=== PATIENT | female | born 1965 | race Caucasian/White ===

== ENCOUNTER 2016-11-28 00:32 | Emergency (ER) | payer SELFPAY ==
[~2016-11-28] VITALS: Ht 162.6 cm; Wt 49.4 kg
[2016-11-28 00:41] VITALS: BP 168/101
--- NOTE | 2016-11-28 03:02 | PHYS DOC ---
Past Medical History Past Medical History: Hypertension Past Surgical History: Appendectomy, Other Additional Past Surgical Histo: D&C Alcohol Use: Heavy Drug Use: None Adult General Chief Complaint Chief Complaint: SKIN PROBLEM HPI HPI Patient is a 50 year old female who presents with skin lesions and is bleeding. Patient reports she has had small wounds on her arms and legs that have been present for the past 1.5 years. She has been seen for this in the past , including by a pmp certified project manager (patient says pmp certified project manager told her it was due to stress). Patient reports these sores are painful, and she takes hydrocodone at home with partial relief. In addition, patient had nosebleed earlier tonight which has resolved by the time I saw patient. Lastly, patient voiced SI to the nursing staff as she is "sick of being sick". She denies a plan to hurt herself to me. She does report drinking several beers tonight. Review of Systems Review of Systems Constitutional: Denies fever or chills Eyes: Denies change in visual acuity or eye pain HENT: Denies nasal congestion or sore throat. Nosebleed (now resolved) Respiratory: Denies cough or shortness of breath Cardiovascular: Denies chest pain GI: Denies abdominal pain, nausea, vomiting, bloody stools or diarrhea : Denies dysuria or hematuria Musculoskeletal: Denies back pain or joint pain Integument: Small scattered wounds Neurologic: Denies headache, focal weakness or sensory changes Allergies Allergies Allergies Coded Allergies Type Severity Reaction Last Updated Verified Sulfa (Sulfonamide Antibiotics) Allergy Unknown rash 10/12/15 Yes Physical Exam Physical Exam Constitutional: Well developed, well nourished, no acute distress, non-toxic appearance HENT: Normocephalic, atraumatic, bilateral external ears normal Eyes: EOMI, conjunctiva normal, no discharge Neck: Normal range of motion, no stridor Cardiovascular: Heart rate normal, regular rhythm, no murmur Lungs & Thorax: Bilateral breath sounds clear to auscultation Abdomen: Bowel sounds normal, soft, non-distended, no TTP Skin: Warm, dry, no erythema. Several scattered wounds on arms and legs all < 7mm in diameter, non-raised, no surrounding erythema, no discharge Extremities: No obvious deformity, no edema Neurologic: Alert and oriented X 3, no gross deficits noted Psychologic: Tearful Current Patient Data Vital Signs Vital Signs Date Time Temp Pulse Resp B/P Pulse Ox O2 Delivery O2 Flow Rate FiO2 11/28/16 00:41 98.2 73 20 168/101 100 Room Air 98.2 EKG EKG [] Radiology/Procedures Radiology/Procedures [] Course & Med Decision Making Course & Med Decision Making Pertinent Labs and Imaging studies reviewed. (See chart for details) Patient is 50 year old female who presents with small wounds to arms and legs, nosebleed which has resolved, SI which she voiced nursing staff. Unclear cause a small wounds, however they do not look infected and given the long duration will not pursue workup in emergency department. As far as these ago, I discussed the importance of following up with dermatology for further evaluation. Nosebleed has resolved and did not recur during time in ED. PAT team called to evaluate for SI. Labs ordered, which I discussed with patient, however then she refused to give any blood or urine. Patient seen by Lorena of PAT team; she has been cleared to go home. Patient discharged with instructions for follow up and return precautions. Dragon Disclaimer Dragon Disclaimer This electronic medical record was generated, in whole or in part, using a voice recognition dictation system. Departure Departure Impression: Primary Impression: Multiple wounds of skin Additional Impression: Nosebleed Disposition: 01 HOME, SELF-CARE Condition: STABLE Referrals: NO PCP (PCP) HOLDEN MARIA MD Patient Instructions: Wound Care, [id number] Additional Instructions: Thank you for allowing us to provide care today in the Emergency Department. Schedule a follow up appointment with a pmp certified project manager using the provided contact information. Return promptly to the Emergency Department if you develop any new or concerning symptoms. Problem Qualifiers TENISHA GALEANO MD Nov 28, 2016 03:02
== END 2016-11-28 03:26 | disposition home or self-care (01) ==
LOC: ER 00:32
DX: S41.109A Unspecified open wound of unspecified upper arm, initial encounter (principal); S81.809A Unspecified open wound, unspecified lower leg, initial encounter; R04.0 Epistaxis; F10.10 Alcohol abuse, uncomplicated; I10 Essential (primary) hypertension; Y90.9 Presence of alcohol in blood, level not specified; Z88.2 Allergy status to sulfonamides; X58.XXXA Exposure to other specified factors, initial encounter; Y93.89 Activity, other specified; Y92.89 Other specified places as the place of occurrence of the external cause; Y99.8 Other external cause status
CPT/HCPCS: 99283

== ENCOUNTER 2018-12-09 22:59 | Inpatient (IN) | payer SELFPAY ==
[~2018-12-09] VITALS: Ht 162.6 cm; Wt 52.6 kg
[~2018-12-09 22:59] MED LIST: FOLI1TAB16 PO; LACT1CAP19 PO; Pantoprazole PO; THIA100T22 PO; VANC500V PO
[2018-12-09 23:26] LABS: BASO % 2 % (0-3); EOS # 0.1 x10^3/uL (0.0-0.7); EOS % 3 % (0-3); HEMATOCRIT 33.1 % (36.0-47.0); HEMOGLOBIN 11.4 g/dL (12.0-15.5); LYMPH # 1.1 x10^3/uL (1.0-4.8); LYMPH % 56 % (24-48); MEAN CORPUSCULAR HEMOGLOBIN 38 pg (25-35); MEAN CORPUSCULAR HGB CONC 34 g/dL (31-37); MEAN CORPUSCULAR VOLUME 110 fL (79-100); MONO # 0.2 x10^3/uL (0.0-1.1); MONO % 9 % (0-9); NEUT # 0.6 x10^3uL (1.8-7.7); NEUT % 30 % (31-73); PLATELET COUNT 88 x10^3/uL (140-400); RED BLOOD COUNT 3.02 x10^6/uL (3.50-5.40)
[2018-12-09 23:27] LABS: BILIRUBIN,URINE NEGATIVE (NEG); CLARITY,URINE CLEAR; COLOR,URINE YELLOW; NITRITE,URINE NEGATIVE (NEG); PH,URINE 5.5; PROTEIN,URINE NEGATIVE (NEG-TRACE); UROBILINOGEN,URINE 0.2 mg/dL (0.2 mg/dL)
--- NOTE | 2018-12-09 23:27 | PHYS DOC ---
Past Medical History Past Medical History: Hypertension, Other Additional Past Medical Histor: etoh Past Medical History Limited due to acute intoxication Past Surgical History: Appendectomy, Other Additional Past Surgical Histo: D&C Past Surgical History Limited due to acute intoxication Smokin Pack Per Day Alcohol Use: Heavy Drug Use: None Social History Limited due to acute intoxication Adult General Chief Complaint Chief Complaint: OVERDOSE HPI HPI Patient is a 52-year-old female presenting via EMS with a overdose of clonazepam 45 minutes to an hour ago at home. She reports that she has made suicide attempts before but she is unable to give a reliable history at this point because of her current condition. She reports that she drank about 6 beers tonight as well as the clonazepam. Patient reports that she called 911 on her own. Unable to determine further history due to current condition with intoxication. Review of Systems Review of Systems Unable to provide review of symptoms due to current condition/intoxication Current Medications Current Medications Current Medications Medications (Trade) Dose Ordered Sig/Miguel Start Time Stop Time Status Last Admin Dose Admin Multivitamins 10 ml/Thiamine HCl 100 mg/Folic Acid 1 mg/Sodium Chloride 1,011.2 ml @ 1,000.088 mls/hr 1X ONCE 12/10/18 00:00 12/10/18 01:00 DC 12/10/18 00:22 1,000.088 MLS/HR Sodium Chloride 1,000 ml @ 1,000 mls/hr 1X ONCE 12/09/18 23:30 12/10/18 00:29 DC 12/09/18 23:24 1,000 MLS/HR Allergies Allergies Allergies Coded Allergies Type Severity Reaction Last Updated Verified Sulfa (Sulfonamide Antibiotics) Allergy Intermediate rash 09/29/18 Yes Physical Exam Physical Exam Constitutional: Non-toxic appearance, drowsy. [] HENT: Normocephalic, atraumatic. [] Eyes: Conjunctiva normal, no discharge. [] Neck: Normal range of motion, no tenderness. [] Cardiovascular: Heart rate regular rhythm, no murmur [] Lungs & Thorax: Bilateral breath sounds clear to auscultation [] Abdomen: Bowel sounds normal, soft, no tenderness. [] Skin: Warm, dry, no erythema, no rash. [] Extremities: No tenderness, no edema. [] Neurologic: Alert and oriented X 3, no focal deficits noted. [] Psychologic: Mood depressed, judgement altered. [] Current Patient Data Vital Signs Vital Signs Date Time Temp Pulse Resp B/P (MAP) Pulse Ox O2 Delivery O2 Flow Rate FiO2 12/10/18 00:37 68 16 107/85 (92) 99 Room Air 12/09/18 22:59 97.7 97.7 Lab Values Laboratory Tests Test 12/09/18 23:13 12/09/18 23:15 White Blood Count 2.0 x10^3/uL (4.0-11.0) L Red Blood Count 3.02 x10^6/uL (3.50-5.40) L Hemoglobin 11.4 g/dL (12.0-15.5) L Hematocrit 33.1 % (36.0-47.0) L Mean Corpuscular Volume 110 fL (79-100) H Mean Corpuscular Hemoglobin 38 pg (25-35) H Mean Corpuscular Hemoglobin Concent 34 g/dL (31-37) Red Cell Distribution Width 16.0 % (11.5-14.5) H Platelet Count 88 x10^3/uL (140-400) L Neutrophils (%) (Auto) 30 % (31-73) L Lymphocytes (%) (Auto) 56 % (24-48) H Monocytes (%) (Auto) 9 % (0-9) Eosinophils (%) (Auto) 3 % (0-3) Basophils (%) (Auto) 2 % (0-3) Neutrophils # (Auto) 0.6 x10^3uL (1.8-7.7) L Lymphocytes # (Auto) 1.1 x10^3/uL (1.0-4.8) Monocytes # (Auto) 0.2 x10^3/uL (0.0-1.1) Eosinophils # (Auto) 0.1 x10^3/uL (0.0-0.7) Basophils # (Auto) 0.0 x10^3/uL (0.0-0.2) Segmented Neutrophils % 27 % (35-66) L Lymphocytes % 58 % (24-48) H Monocytes % 12 % (0-10) H Eosinophils % 3 % (0-5) Platelet Estimate Decreased (ADEQUATE) Macrocytosis Slight Prothrombin Time 13.5 SEC (11.7-14.0) Prothrombin Time INR 1.1 (0.8-1.1) PTT 48 SEC (24-38) H Sodium Level 138 mmol/L (136-145) Potassium Level 3.7 mmol/L (3.5-5.1) Chloride Level 102 mmol/L (98-107) Carbon Dioxide Level 23 mmol/L (21-32) Anion Gap 13 (6-14) Blood Urea Nitrogen 9 mg/dL (7-20) Creatinine 0.8 mg/dL (0.6-1.0) Estimated GFR (Cockcroft-Gault) 75.9 BUN/Creatinine Ratio 11 (6-20) Glucose Level 89 mg/dL (70-99) Calcium Level 8.6 mg/dL (8.5-10.1) Magnesium Level 2.2 mg/dL (1.8-2.4) Total Bilirubin 0.4 mg/dL (0.2-1.0) Aspartate Amino Transferase (AST) 81 U/L (15-37) H Alanine Aminotransferase (ALT) 34 U/L (14-59) Alkaline Phosphatase 174 U/L (46-116) H Total Protein 7.1 g/dL (6.4-8.2) Albumin 2.9 g/dL (3.4-5.0) L Albumin/Globulin Ratio 0.7 (1.0-1.7) L Lipase 138 U/L (73-393) Ethyl Alcohol Level 204 mg/dL (0-10) H Urine Color Yellow Urine Clarity Clear Urine pH 5.5 Urine Specific [place] <=1.005 Urine Protein Negative mg/dL (NEG-TRACE) Urine Glucose (UA) Negative mg/dL (NEG) Urine Ketones (Stick) Negative mg/dL (NEG) Urine Blood Negative (NEG) Urine Nitrite Negative (NEG) Urine Bilirubin Negative (NEG) Urine Urobilinogen Dipstick 0.2 mg/dL (0.2 mg/dL) Urine Leukocyte Esterase Negative (NEG) Urine RBC Rare /HPF (0-2) Urine WBC Occ /HPF (0-4) Urine Squamous Epithelial Cells Occ /LPF Urine Renal Epithelial Cells Occ /LPF Urine Amorphous Sediment Present /HPF Urine Bacteria 0 /HPF (0-FEW) Urine Opiates Screen Pos (NEG) Urine Methadone Screen Neg (NEG) Urine Barbiturates Neg (NEG) Urine Phencyclidine Screen Neg (NEG) Urine Amphetamine/Methamphetamine Neg (NEG) Urine Benzodiazepines Screen Neg (NEG) Urine Cocaine Screen Neg (NEG) Urine Cannabinoids Screen Neg (NEG) Urine Ethyl Alcohol Pos (NEG) Laboratory Tests 12/09/18 23:13 Laboratory Tests 12/09/18 23:13 EKG EKG EKG @ 2329 sinus rhythm at 80 BPM with prolonged QT at 414ms, no ST elevation Radiology/Procedures Radiology/Procedures [] Course & Med Decision Making Course & Med Decision Making Pertinent Lab studies reviewed. (See chart for details) Patient is a 52-year-old female that is presenting via EMS after reported suicide attempt with clonazepam. It is unclear how much clonazepam she took, she had a prescription for 90 pills filled November 10 that had 49 pills left. She is unable to provide an accurate history. EMS also arrived with a prescription of hydrocodone 120 pills, there was only one missing. Labs obtained and posted to chart. CBC shows white count of 2, hemoglobin of 11.4, platelet count of 88. Pancytopenia actually improved in comparison to recent labs per [facility]. Urine drug screen positive for opiates, negative for benzodiazepines. Blood alcohol level of 204. CMP shows AST of 81 and alkaline phosphatase of 174. EKG shows sinus rhythm with prolonged QT at 414ms, no ST elevation. Poison control consulted. PAT consulted. Fluids administered with thiamine, folic acid, and magnesium. PAT recommends medical admission at this time due to acute intoxication and unknown ingestion. Patient will be admitted for evaluation of suicide attempt and medical management. Patient requiring admission for further evaluation and treatment. Discussed with Dr. Mega Arias (hospitalist) who is in agreement with admission. Discussed findings and plan with patient and family, who acknowledge understanding and agreement. Dragon Disclaimer Dragon Disclaimer This electronic medical record was generated, in whole or in part, using a voice recognition dictation system. Departure Departure Impression: Primary Impression: Suicidal intent Additional Impressions: Alcohol intoxication Pancytopenia Neutropenia Disposition: 09 ADMITTED INPATIENT Admitting Physician: Other (Tony Gar) Condition: STABLE Referrals: UNKNOWN PCP NAME (PCP) Problem Qualifiers Additional Impressions: Alcohol intoxication Complication of substance-induced condition: uncomplicated Qualified Codes: F10.920 - Alcohol use, unspecified with intoxication, uncomplicated Neutropenia Neutropenia type: unspecified Qualified Codes: D70.9 - Neutropenia, unspecified ESTEPHANIA SILVA DO Dec 09, 2018 23:27
[2018-12-09] MEDS ORDERED: IV NORMAL SALINE 1000ML BAG 1,000 ML IV ONE (23:30)
[2018-12-09 23:35] LABS: CALCIUM 8.6 mg/dL (8.5-10.1); CREATININE 0.8 mg/dL (0.6-1.0); GFR 75.9; POTASSIUM 3.7 mmol/L (3.5-5.1); PROTHROMBIN TIME PATIENT 13.5 SEC (11.7-14.0)
[2018-12-09 23:35] LABS: AMPHETAMINE/METHAMPHETAMINE NEG (NEG); BARBITURATES NEG (NEG); BENZODIAZEPINES NEG (NEG); CANNABINOIDS NEG (NEG); COCAINE NEG (NEG); METHADONE NEG (NEG); OPIATES POS (NEG); PHENCYCLIDINE NEG (NEG)
[2018-12-09 23:36] LABS: AMORPHOUS SEDIMENT,UR PRESENT /HPF; BACTERIA,URINE 0 /HPF (0-FEW); SQUAMOUS EPITHELIAL CELL,UR OCC /LPF; WBC,URINE OCC /HPF (0-4)
[2018-12-09 23:37] LABS: RBC,URINE RARE /HPF (0-2)
[2018-12-09 23:40] LABS: ALBUMIN 2.9 g/dL (3.4-5.0); ALBUMIN/GLOBULIN RATIO 0.7 (1.0-1.7); MAGNESIUM 2.2 mg/dL (1.8-2.4); TOTAL BILIRUBIN 0.4 mg/dL (0.2-1.0); TOTAL PROTEIN 7.1 g/dL (6.4-8.2)
[2018-12-10] MEDS ORDERED: MULTIVIT INFUSN,ADULT 4,VIT K 10 ML, THIAMINE INJ 100 MG, FOLIC ACID INJ 1 MG in IV NOR... IV ONE ×4
[2018-12-10] MEDS ORDERED: ONDANSETRON PF 4 MG/2 ML VIAL. IV PRN (01:15)
[2018-12-10 01:35] LABS: % EOS 3 % (0-5); % LYMPHS 58 % (24-48); % MONOS 12 % (0-10); % SEGS 27 % (35-66); PLT ESTIMATE DECREASED (ADEQUATE)
[2018-12-10 02:20] VITALS: BP 120/75
[2018-12-10] MEDS ORDERED: HYDR-2765 PO (02:22)
[2018-12-10] MEDS ORDERED: CLON1TAB11 PO (02:22)
[2018-12-10] MEDS ORDERED: CLON0.5T11 PO (02:22)
[2018-12-10] MEDS ORDERED: ASCO500T PO (03:10)
[2018-12-10] MEDS ORDERED: MULT1TAB52 PO (03:10)
[2018-12-10] MEDS ORDERED: FLUO10TA PO (03:12)
[2018-12-10 07:12] VITALS: BP 88/69
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
[2018-12-10] MEDS ORDERED: HALOPERIDOL LACTATE 5 MG/ML VIAL. IVP PRN (10:00)
[2018-12-10] MEDS ORDERED: diphenhydrAMINE 50 MG/ML VIAL IVP PRN (10:00)
[2018-12-10] MEDS ORDERED: cloNIDine HCL 0.1 MG TABLET PO PRN (10:00)
[2018-12-10 11:00] VITALS: BP 111/76
[2018-12-10 15:00] VITALS: BP 110/70
--- NOTE | 2018-12-10 18:20 | NUR ---
Patient has had a one to one staff member all shift due to suicide attempt. Current staff member unable to chart in the system. Patient has had 1 to 1 all shift and is upset that she cannot have any pain medication at this time per 2 DrLydia's tis shift. Patient upset with this RN due to trying to explain the reasoning behind not receiving any Hydrocodone or clonazepam at this point. Patients López called to check on the patient this shift.Patient stated to give López information.
[2018-12-10 19:00] VITALS: BP 137/92
[2018-12-10] MEDS: LACTOBACILLUS RHAMNOSUS GG 1 CAPSULE. PO SCH (20:33)
[2018-12-10] MEDS: FLUoxetine HCL 10 MG CAPSULE PO SCH (20:33)
[2018-12-10] MEDS ORDERED: LOPERAMIDE 2 MG CAPSULE PO PRN (20:45)
[2018-12-10 23:00] VITALS: BP 127/87
[2018-12-11 03:53] VITALS: BP 136/97
[2018-12-11 04:11] LABS: BASO % 1 % (0-3); EOS # 0.1 x10^3/uL (0.0-0.7); EOS % 4 % (0-3); HEMATOCRIT 29.7 % (36.0-47.0); HEMOGLOBIN 10.2 g/dL (12.0-15.5); LYMPH # 0.9 x10^3/uL (1.0-4.8); LYMPH % 67 % (24-48); MEAN CORPUSCULAR HEMOGLOBIN 38 pg (25-35); MEAN CORPUSCULAR HGB CONC 34 g/dL (31-37); MEAN CORPUSCULAR VOLUME 111 fL (79-100); MONO # 0.1 x10^3/uL (0.0-1.1); MONO % 11 % (0-9); NEUT # 0.2 x10^3uL (1.8-7.7); NEUT % 18 % (31-73); PLATELET COUNT 64 x10^3/uL (140-400); RED BLOOD COUNT 2.67 x10^6/uL (3.50-5.40); RED CELL DISTRIBUTION WIDTH 15.9 % (11.5-14.5)
[2018-12-11 04:29] LABS: ALBUMIN 2.4 g/dL (3.4-5.0); ALBUMIN/GLOBULIN RATIO 0.7 (1.0-1.7); CREATININE 0.6 mg/dL (0.6-1.0); GFR 105.4; POTASSIUM 3.4 mmol/L (3.5-5.1); TOTAL BILIRUBIN 0.6 mg/dL (0.2-1.0); TOTAL PROTEIN 5.9 g/dL (6.4-8.2)
[2018-12-11 05:11] LABS: WHITE BLOOD COUNT 1.3 x10^3/uL (4.0-11.0)
[2018-12-11 07:05] VITALS: BP 110/57
[2018-12-11] MEDS ORDERED: POTASSIUM CHLORIDE 20 MEQ TABLET.ER. PO ONE (08:15)
[2018-12-11] MEDS ORDERED: chlordiazePOXIDE HCL 25 MG CAPSULE PO PRN (08:15)
[2018-12-11] MEDS ORDERED: ONDANSETRON PF 4 MG/2 ML VIAL. IV PRN (08:15)
[2018-12-11] MEDS: LACTOBACILLUS RHAMNOSUS GG 1 CAPSULE. PO SCH ×2 (08:59→20:37)
[2018-12-11] MEDS: FLUoxetine HCL 10 MG CAPSULE PO SCH (08:59)
[2018-12-11] MEDS: PANTOPRAZOLE 40 MG TABLET.DR. PO SCH (08:59)
[2018-12-11] MEDS: THIAMINE 100 MG TABLET. PO SCH (09:00)
[2018-12-11] MEDS ORDERED: IBUPROFEN 400 MG TABLET. PO PRN (09:00)
[2018-12-11] MEDS: FOLIC ACID 1 MG TABLET. PO SCH (09:00)
[2018-12-11] MEDS ORDERED: FLUOXETINE HCL 10 MG PO SCH (09:00)
[2018-12-11] MEDS: ASCORBIC ACID 500 MG TABLET PO SCH (09:00)
[2018-12-11] MEDS: MULTIVITAMIN with MINERAL TABLET. PO SCH (09:00)
--- NOTE | 2018-12-11 09:04 | PDOC ---
PROGRESS NOTES Chief Complaint Chief Complaint Suicide attempt-OD on clonazepam, mixed with alcohol Positive opiates UDS Pancytopenia-likely related to alcoholism Moderate PCM Macrocytic anemia Elevated lipase and LFTs from alcohol Major depression, severe History of Present Illness History of Present Illness H&P reviewed Suicide attempt OD'd on clonazepam mixed with alcohol She asks for clonazepam and hydrocodone's for me-of course I refused She sees an outpatient psych She has been to inpatient psych before PAT has yet to assess Pancytopenia with hemoglobin 10, WBC 1.3 and platelets 64 with no bleeding Known to heme onc service, was seen last year for neutropenia - attributed to alcoholism Was never told she needed a bone marrow biopsy done Heavy education counseling done with sitter as witnessed-about refusing to give her more clonazepam of hydrocodone while in-house History of leaving AMA Discussed with RN Plan: Await Pat team No Tylenol or more hydrocodone - she OD from this Ibuprofen okay Okay to transfer out of CVC Librium when necessary Discussed with VANE Petersen Vitals Vitals Vital Signs Date Time Temp Pulse Resp B/P (MAP) Pulse Ox O2 Delivery O2 Flow Rate FiO2 12/11/18 07:05 98.3 67 18 110/57 (74) 96 Room Air 98.3 Physical Exam General: Alert, Oriented X3, Cooperative, No acute distress Heart: Regular rate, Normal S1, Normal S2, No murmurs Lungs: Clear Abdomen: Normal bowel sounds, Soft, No tenderness, No hepatosplenomegaly, No masses Extremities: No clubbing, No edema, Other (multiple abrasions) Skin: No rashes, No breakdown, No significant lesion, Other (Multiple abrasions ) Labs LABS Laboratory Tests Test 12/11/18 03:30 12/11/18 03:35 White Blood Count 1.3 x10^3/uL (4.0-11.0) Red Blood Count 2.67 x10^6/uL (3.50-5.40) Hemoglobin 10.2 g/dL (12.0-15.5) Hematocrit 29.7 % (36.0-47.0) Mean Corpuscular Volume 111 fL (79-100) Mean Corpuscular Hemoglobin 38 pg (25-35) Mean Corpuscular Hemoglobin Concent 34 g/dL (31-37) Red Cell Distribution Width 15.9 % (11.5-14.5) Platelet Count 64 x10^3/uL (140-400) Neutrophils (%) (Auto) 18 % (31-73) Lymphocytes (%) (Auto) 67 % (24-48) Monocytes (%) (Auto) 11 % (0-9) Eosinophils (%) (Auto) 4 % (0-3) Basophils (%) (Auto) 1 % (0-3) Neutrophils # (Auto) 0.2 x10^3uL (1.8-7.7) Lymphocytes # (Auto) 0.9 x10^3/uL (1.0-4.8) Monocytes # (Auto) 0.1 x10^3/uL (0.0-1.1) Eosinophils # (Auto) 0.1 x10^3/uL (0.0-0.7) Basophils # (Auto) 0.0 x10^3/uL (0.0-0.2) Sodium Level 142 mmol/L (136-145) Potassium Level 3.4 mmol/L (3.5-5.1) Chloride Level 109 mmol/L (98-107) Carbon Dioxide Level 25 mmol/L (21-32) Anion Gap 8 (6-14) Blood Urea Nitrogen 8 mg/dL (7-20) Creatinine 0.6 mg/dL (0.6-1.0) Estimated GFR (Cockcroft-Gault) 105.4 BUN/Creatinine Ratio 13 (6-20) Glucose Level 90 mg/dL (70-99) Calcium Level 8.0 mg/dL (8.5-10.1) Total Bilirubin 0.6 mg/dL (0.2-1.0) Aspartate Amino Transf (AST/SGOT) 73 U/L (15-37) Alanine Aminotransferase (ALT/SGPT) 30 U/L (14-59) Alkaline Phosphatase 146 U/L (46-116) Total Protein 5.9 g/dL (6.4-8.2) Albumin 2.4 g/dL (3.4-5.0) Albumin/Globulin Ratio 0.7 (1.0-1.7) Review of Systems Review of Systems A 14 point ROS was completed with the following noted as positive: Other systems reviewed and negative. \CONSTITUTIONAL: No fever or chills EYES: No recent changes SKIN: No rash or itching CARDIOVASCULAR: No chest pain, syncope, palpitations, or edema RESPIRATORY: No SOB or cough GASTROINTESTINAL: No nausea, vomiting or abdominal pain NEUROLOGICAL: No headaches or weakness ENDOCRINE: No cold or heat intolerance GENITOURINARY: No urgency or frequency of urination MUSCULOSKELETAL: No back pain or joint pain LYMPHATICS: No enlarged lymph nodes PSYCHIATRIC: No anxiety or depression Assessment and Plan Assessmemt and Plan Problems Medical Problems: (1) Alcohol intoxication Status: Acute (2) Neutropenia Status: Acute (3) Pancytopenia Status: Acute (4) Suicidal intent Status: Acute Comment Review of Relevant I have reviewed the following items romeo (where applicable) has been applied. Labs Laboratory Tests Test 12/09/18 23:13 12/09/18 23:15 12/11/18 03:30 12/11/18 03:35 White Blood Count 2.0 x10^3/uL (4.0-11.0) 1.3 x10^3/uL (4.0-11.0) Red Blood Count 3.02 x10^6/uL (3.50-5.40) 2.67 x10^6/uL (3.50-5.40) Hemoglobin 11.4 g/dL (12.0-15.5) 10.2 g/dL (12.0-15.5) Hematocrit 33.1 % (36.0-47.0) 29.7 % (36.0-47.0) Mean Corpuscular Volume 110 fL (79-100) 111 fL (79-100) Mean Corpuscular Hemoglobin 38 pg (25-35) 38 pg (25-35) Mean Corpuscular Hemoglobin Concent 34 g/dL (31-37) 34 g/dL (31-37) Red Cell Distribution Width 16.0 % (11.5-14.5) 15.9 % (11.5-14.5) Platelet Count 88 x10^3/uL (140-400) 64 x10^3/uL (140-400) Neutrophils (%) (Auto) 30 % (31-73) 18 % (31-73) Lymphocytes (%) (Auto) 56 % (24-48) 67 % (24-48) Monocytes (%) (Auto) 9 % (0-9) 11 % (0-9) Eosinophils (%) (Auto) 3 % (0-3) 4 % (0-3) Basophils (%) (Auto) 2 % (0-3) 1 % (0-3) Neutrophils # (Auto) 0.6 x10^3uL (1.8-7.7) 0.2 x10^3uL (1.8-7.7) Lymphocytes # (Auto) 1.1 x10^3/uL (1.0-4.8) 0.9 x10^3/uL (1.0-4.8) Monocytes # (Auto) 0.2 x10^3/uL (0.0-1.1) 0.1 x10^3/uL (0.0-1.1) Eosinophils # (Auto) 0.1 x10^3/uL (0.0-0.7) 0.1 x10^3/uL (0.0-0.7) Basophils # (Auto) 0.0 x10^3/uL (0.0-0.2) 0.0 x10^3/uL (0.0-0.2) Segmented Neutrophils % 27 % (35-66) Lymphocytes % 58 % (24-48) Monocytes % 12 % (0-10) Eosinophils % 3 % (0-5) Platelet Estimate Decreased (ADEQUATE) Macrocytosis Slight Prothrombin Time 13.5 SEC (11.7-14.0) Prothromb Time International Ratio 1.1 (0.8-1.1) Activated Partial Thromboplast Time 48 SEC (24-38) Sodium Level 138 mmol/L (136-145) 142 mmol/L (136-145) Potassium Level 3.7 mmol/L (3.5-5.1) 3.4 mmol/L (3.5-5.1) Chloride Level 102 mmol/L (98-107) 109 mmol/L (98-107) Carbon Dioxide Level 23 mmol/L (21-32) 25 mmol/L (21-32) Anion Gap 13 (6-14) 8 (6-14) Blood Urea Nitrogen 9 mg/dL (7-20) 8 mg/dL (7-20) Creatinine 0.8 mg/dL (0.6-1.0) 0.6 mg/dL (0.6-1.0) Estimated GFR (Cockcroft-Gault) 75.9 105.4 BUN/Creatinine Ratio 11 (6-20) 13 (6-20) Glucose Level 89 mg/dL (70-99) 90 mg/dL (70-99) Calcium Level 8.6 mg/dL (8.5-10.1) 8.0 mg/dL (8.5-10.1) Magnesium Level 2.2 mg/dL (1.8-2.4) Total Bilirubin 0.4 mg/dL (0.2-1.0) 0.6 mg/dL (0.2-1.0) Aspartate Amino Transf (AST/SGOT) 81 U/L (15-37) 73 U/L (15-37) Alanine Aminotransferase (ALT/SGPT) 34 U/L (14-59) 30 U/L (14-59) Alkaline Phosphatase 174 U/L (46-116) 146 U/L (46-116) Total Protein 7.1 g/dL (6.4-8.2) 5.9 g/dL (6.4-8.2) Albumin 2.9 g/dL (3.4-5.0) 2.4 g/dL (3.4-5.0) Albumin/Globulin Ratio 0.7 (1.0-1.7) 0.7 (1.0-1.7) Lipase 138 U/L (73-393) Ethyl Alcohol Level 204 mg/dL (0-10) Urine Color Yellow Urine Clarity Clear Urine pH 5.5 Urine Specific [place] <=1.005 Urine Protein Negative mg/dL (NEG-TRACE) Urine Glucose (UA) Negative mg/dL (NEG) Urine Ketones (Stick) Negative mg/dL (NEG) Urine Blood Negative (NEG) Urine Nitrite Negative (NEG) Urine Bilirubin Negative (NEG) Urine Urobilinogen Dipstick 0.2 mg/dL (0.2 mg/dL) Urine Leukocyte Esterase Negative (NEG) Urine RBC Rare /HPF (0-2) Urine WBC Occ /HPF (0-4) Urine Squamous Epithelial Cells Occ /LPF Urine Renal Epithelial Cells Occ /LPF Urine Amorphous Sediment Present /HPF Urine Bacteria 0 /HPF (0-FEW) Urine Opiates Screen Pos (NEG) Urine Methadone Screen Neg (NEG) Urine Barbiturates Neg (NEG) Urine Phencyclidine Screen Neg (NEG) Urine Amphetamine/Methamphetamine Neg (NEG) Urine Benzodiazepines Screen Neg (NEG) Urine Cocaine Screen Neg (NEG) Urine Cannabinoids Screen Neg (NEG) Urine Ethyl Alcohol Pos (NEG) Laboratory Tests Test 12/11/18 03:30 12/11/18 03:35 White Blood Count 1.3 x10^3/uL (4.0-11.0) Red Blood Count 2.67 x10^6/uL (3.50-5.40) Hemoglobin 10.2 g/dL (12.0-15.5) Hematocrit 29.7 % (36.0-47.0) Mean Corpuscular Volume 111 fL (79-100) Mean Corpuscular Hemoglobin 38 pg (25-35) Mean Corpuscular Hemoglobin Concent 34 g/dL (31-37) Red Cell Distribution Width 15.9 % (11.5-14.5) Platelet Count 64 x10^3/uL (140-400) Neutrophils (%) (Auto) 18 % (31-73) Lymphocytes (%) (Auto) 67 % (24-48) Monocytes (%) (Auto) 11 % (0-9) Eosinophils (%) (Auto) 4 % (0-3) Basophils (%) (Auto) 1 % (0-3) Neutrophils # (Auto) 0.2 x10^3uL (1.8-7.7) Lymphocytes # (Auto) 0.9 x10^3/uL (1.0-4.8) Monocytes # (Auto) 0.1 x10^3/uL (0.0-1.1) Eosinophils # (Auto) 0.1 x10^3/uL (0.0-0.7) Basophils # (Auto) 0.0 x10^3/uL (0.0-0.2) Sodium Level 142 mmol/L (136-145) Potassium Level 3.4 mmol/L (3.5-5.1) Chloride Level 109 mmol/L (98-107) Carbon Dioxide Level 25 mmol/L (21-32) Anion Gap 8 (6-14) Blood Urea Nitrogen 8 mg/dL (7-20) Creatinine 0.6 mg/dL (0.6-1.0) Estimated GFR (Cockcroft-Gault) 105.4 BUN/Creatinine Ratio 13 (6-20) Glucose Level 90 mg/dL (70-99) Calcium Level 8.0 mg/dL (8.5-10.1) Total Bilirubin 0.6 mg/dL (0.2-1.0) Aspartate Amino Transf (AST/SGOT) 73 U/L (15-37) Alanine Aminotransferase (ALT/SGPT) 30 U/L (14-59) Alkaline Phosphatase 146 U/L (46-116) Total Protein 5.9 g/dL (6.4-8.2) Albumin 2.4 g/dL (3.4-5.0) Albumin/Globulin Ratio 0.7 (1.0-1.7) Medications Current Medications Sodium Chloride 1,000 ml @ 1,000 mls/hr 1X ONCE IV Last administered on at 23:24; Start 12/09/18 at 23:30; Stop 12/10/18 at 00:29; Status DC Multivitamins 10 ml/Thiamine HCl 100 mg/Folic Acid 1 mg/Sodium Chloride 1,011.2 ml @ 1,000.088 mls/hr 1X ONCE IV Last administered on 12/10/18at 00:22; Start 12/10/18 at 00:00; Stop 12/10/18 at 01:00; Status DC Ondansetron HCl (Zofran) 4 mg PRN Q8HRS PRN IV NAUSEA/VOMITING 1ST CHOICE; Start 12/10/18 at 01:15; Stop 12/11/18 at 01:14; Status DC Lorazepam (Ativan) 1 mg PRN Q4HRS PRN IV WITHDRAWAL IRRITABILITY; Start at 01:15 Multivitamins 10 ml/Thiamine HCl 100 mg/Folic Acid 1 mg/Sodium Chloride 1,011.2 ml @ 100 mls/ hr DAILY IV ; Start 12/11/18 at 09:00; Stop 12/15/18 at 19:07 Haloperidol Lactate (Haldol Inj) 5 mg PRN Q4HRS PRN IVP Hallucinatns,Confusn, Delirium; Start 12/10/18 at 10:00 Diphenhydramine HCl (Benadryl) 25 mg PRN Q15MIN PRN IVP EPS symptoms 2'Haldol admin; Start 12/10/18 at 10:00 Clonidine HCl (Catapres) 0.1 mg PRN Q1HR PRN PO SBP > 180 or DBP > 100, MRX3; Start 12/10/18 at 10:00 Folic Acid (Folic Acid) 1 mg DAILY PO ; Start 12/11/18 at 09:00 Lactobacillus Rhamnosus (Culturelle) 1 cap BID PO Last administered on at 08:59; Start 12/10/18 at 21:00 Ascorbic Acid (Vitamin C) 500 mg DAILY PO ; Start 12/11/18 at 09:00 Multivitamins (Thera M Plus) 1 tab DAILY PO ; Start 12/11/18 at 09:00 Thiamine Mononitrate (Vitamin B-1) 100 mg DAILY PO ; Start 12/11/18 at 09:00 Pantoprazole Sodium (Protonix) 40 mg DAILYAC PO Last administered on 12/11/18at 08:59; Start 12/11/18 at 07:30 Non-Formulary Medication (Fluoxetine Hcl ) 10 mg DAILY PO ; Start 12/11/18 at 09 :00; Stop 12/11/18 at 09:00; Status DC Fluoxetine HCl (PROzac) 10 mg DAILY PO Last administered on 12/11/18at 08:59; Start 12/10/18 at 20:00 Loperamide HCl (Imodium) 2 mg PRN Q15MIN PRN PO DIARRHEA Last administered on at 21:23; Start 12/10/18 at 20:45; Stop 12/11/18 at 08:08; Status DC Chlordiazepoxide (Librium) 25 mg PRN Q6HRS PRN PO ANXIETY / AGITATION; Start at 08:15 Ondansetron HCl (Zofran) 4 mg PRN Q6HRS PRN IV NAUSEA/VOMITING; Start 12/11/18 at 08:15 Potassium Chloride (Klor-Con) 40 meq 1X ONCE PO ; Start 12/11/18 at 08:15; Stop 12/11/18 at 08:16; Status DC Active Scripts Active Vitamin B-1 (Thiamine Mononitrate) 100 Mg Tablet 100 Mg PO DAILY 30 Days Folic Acid 1 Mg Tablet 1 Mg PO DAILY 30 Days Culturelle (Lactobacillus Rhamnosus Gg) 1 Each Cap.sprink 1 Cap PO BID 30 Days [Pantoprazole] 40 MG Tablet.dr 40 Mg PO DAILYAC 30 Days Vancomycin Hcl 500 Mg Vial 125 Mg PO [id number] 13 Days Reported Fluoxetine Hcl 10 Mg Tablet 10 Mg PO DAILY Vitamin C (Ascorbic Acid) 500 Mg Tab.chew 500 Mg PO DAILY Multivitamins (Multivitamin) 1 Each Tablet 1 Tab PO DAILY Clonazepam 0.5 Mg Tablet 0.5 Mg PO TID Clonazepam 1 Mg Tablet 1 Mg PO TID Hydrocodone-Apap 7.5-325 (Hydrocodone Bit/Acetaminophen) 1 Tab Tablet 1 Tab PO PRN Q6HRS PRN Vitals/I & O Vital Sign - Last 24 Hours 12/10/18 12/10/18 12/10/18 12/10/18 11:00 15:00 19:00 20:30 Temp 97.7 98.3 97.6 97.7 98.3 97.6 Pulse 75 81 89 Resp 20 16 20 B/P (MAP) 111/76 (88) 110/70 (83) 137/92 (107) Pulse Ox 97 96 99 O2 Delivery Room Air Room Air Room Air Room Air 12/10/18 12/11/18 12/11/18 23:00 03:53 07:05 Temp 98.0 97.7 98.3 98.0 97.7 98.3 Pulse 76 61 67 Resp 20 20 18 B/P (MAP) 127/87 (100) 136/97 (110) 110/57 (74) Pulse Ox 95 97 96 O2 Delivery Room Air Room Air Room Air Intake and Output 12/10/18 12/10/18 12/11/18 15:00 23:00 07:00 Intake Total 0 ml Output Total 200 ml 600 ml Balance -200 ml -600 ml ANI LITTLE MD Dec 11, 2018 09:04
--- NOTE | 2018-12-11 09:15 | NUR ---
PATIENT NOT GIVEN SOME OF PO MULTIVITAMINS DUE TO THOSE VITAMINS BEING ADDED TO THE [facility]NA[facility] BAG
--- NOTE | 2018-12-11 09:44 | PDOC2 ---
CONSULT Date of Consult Date of Consult DATE: 12/11/18 TIME: 09:34 Reason for Consult Reason for Consult: Pancytopenia Referring Physician Referring Physician: Rin Source Source: Chart review, Patient History of Present Illness Reason for Visit: 53 yo female with history of etoh abuse and ?cirrhosis presented to the hospital after drinking 6 beers as per report and taking clonazepam. She states that she typically drinks a pint of whiskey and 2 beers every day. I was consulted for pancytopenia. She was here in [place] in September with very similar labs. She states that she was diagnosed with cirrhosis at as well. (I cannot access the chart from [facility]). She states that she has not had bloodwork in between her visits from September to now. Currently she denies any further symptoms. She denies any bleeding or infection type symptoms. Past Medical History Cardiovascular: No pertinent hx Pulmonary: No pertinent hx GI: Other Heme/Onc: Anemia NOS, Other (Neutropenia) Psych: Depression Infectious disease: No pertinent hx ENT: No pertinent hx Renal/: No pertinent hx Endocrine: No pertinent hx Past Surgical History Past Surgical History: Appendectomy, Other Family History Family History: Alcohol Abuse Social History <1 pack per day ALCOHOL: heavy Drugs: None Current Problem List Problem List Problems Medical Problems: (1) Alcohol intoxication Status: Acute (2) Neutropenia Status: Acute (3) Pancytopenia Status: Acute (4) Suicidal intent Status: Acute Current Medications Current Medications Current Medications Sodium Chloride 1,000 ml @ 1,000 mls/hr 1X ONCE IV Last administered on at 23:24; Start 12/09/18 at 23:30; Stop 12/10/18 at 00:29; Status DC Multivitamins 10 ml/Thiamine HCl 100 mg/Folic Acid 1 mg/Sodium Chloride 1,011.2 ml @ 1,000.088 mls/hr 1X ONCE IV Last administered on 12/10/18at 00:22; Start 12/10/18 at 00:00; Stop 12/10/18 at 01:00; Status DC Ondansetron HCl (Zofran) 4 mg PRN Q8HRS PRN IV NAUSEA/VOMITING 1ST CHOICE; Start 12/10/18 at 01:15; Stop 12/11/18 at 01:14; Status DC Lorazepam (Ativan) 1 mg PRN Q4HRS PRN IV WITHDRAWAL IRRITABILITY; Start at 01:15 Multivitamins 10 ml/Thiamine HCl 100 mg/Folic Acid 1 mg/Sodium Chloride 1,011.2 ml @ 100 mls/ hr DAILY IV ; Start 12/11/18 at 09:00; Stop 12/15/18 at 19:07 Haloperidol Lactate (Haldol Inj) 5 mg PRN Q4HRS PRN IVP Hallucinatns,Confusn, Delirium; Start 12/10/18 at 10:00 Diphenhydramine HCl (Benadryl) 25 mg PRN Q15MIN PRN IVP EPS symptoms 2'Haldol admin; Start 12/10/18 at 10:00 Clonidine HCl (Catapres) 0.1 mg PRN Q1HR PRN PO SBP > 180 or DBP > 100, MRX3; Start 12/10/18 at 10:00 Folic Acid (Folic Acid) 1 mg DAILY PO ; Start 12/11/18 at 09:00 Lactobacillus Rhamnosus (Culturelle) 1 cap BID PO Last administered on at 08:59; Start 12/10/18 at 21:00 Ascorbic Acid (Vitamin C) 500 mg DAILY PO ; Start 12/11/18 at 09:00 Multivitamins (Thera M Plus) 1 tab DAILY PO ; Start 12/11/18 at 09:00 Thiamine Mononitrate (Vitamin B-1) 100 mg DAILY PO ; Start 12/11/18 at 09:00 Pantoprazole Sodium (Protonix) 40 mg DAILYAC PO Last administered on 12/11/18at 08:59; Start 12/11/18 at 07:30 Non-Formulary Medication (Fluoxetine Hcl ) 10 mg DAILY PO ; Start 12/11/18 at 09 :00; Stop 12/11/18 at 09:00; Status DC Fluoxetine HCl (PROzac) 10 mg DAILY PO Last administered on 12/11/18at 08:59; Start 12/10/18 at 20:00 Loperamide HCl (Imodium) 2 mg PRN Q15MIN PRN PO DIARRHEA Last administered on at 21:23; Start 12/10/18 at 20:45; Stop 12/11/18 at 08:08; Status DC Chlordiazepoxide (Librium) 25 mg PRN Q6HRS PRN PO ANXIETY / AGITATION; Start at 08:15 Ondansetron HCl (Zofran) 4 mg PRN Q6HRS PRN IV NAUSEA/VOMITING; Start 12/11/18 at 08:15 Potassium Chloride (Klor-Con) 40 meq 1X ONCE PO ; Start 12/11/18 at 08:15; Stop 12/11/18 at 08:16; Status DC Ibuprofen (Motrin) 400 mg PRN Q6HRS PRN PO INFLAMMATION; Start 12/11/18 at 09: 00 Active Scripts Active Vitamin B-1 (Thiamine Mononitrate) 100 Mg Tablet 100 Mg PO DAILY 30 Days Folic Acid 1 Mg Tablet 1 Mg PO DAILY 30 Days Culturelle (Lactobacillus Rhamnosus Gg) 1 Each Cap.sprink 1 Cap PO BID 30 Days [Pantoprazole] 40 MG Tablet.dr 40 Mg PO DAILYAC 30 Days Vancomycin Hcl 500 Mg Vial 125 Mg PO [id number] 13 Days Reported Fluoxetine Hcl 10 Mg Tablet 10 Mg PO DAILY Vitamin C (Ascorbic Acid) 500 Mg Tab.chew 500 Mg PO DAILY Multivitamins (Multivitamin) 1 Each Tablet 1 Tab PO DAILY Clonazepam 0.5 Mg Tablet 0.5 Mg PO TID Clonazepam 1 Mg Tablet 1 Mg PO TID Hydrocodone-Apap 7.5-325 (Hydrocodone Bit/Acetaminophen) 1 Tab Tablet 1 Tab PO PRN Q6HRS PRN Allergies Allergies: Coded Allergies: Sulfa (Sulfonamide Antibiotics) (Verified Allergy, Intermediate, rash, ) ROS General: No: Chills, Night Sweats, Fatigue, Malaise, Appetite, Other PSYCHOLOGICAL ROS: YES: Anxiety, Depression, Irritablity Eyes: No Blurry vision, No Decreased vision, No Double vision, No Dry eyes, No Excessive tearing, No Eye Pain, No Itchy Eyes, No Loss of vision, No Photophobia , No Scotomata, No Uses contacts, No Uses glasses, No Other HEENT: No: Heacaches, Visual Changes, Hearing change, Nasal congestion, Nasal discharge, Oral lesions, Sinus pain, Sore Throat, Epistaxis, Sneezing, Snoring, Tinnitus, Vertigo, Vocal changes, Other ALLERGY AND IMMUNOLOGY: No: Hives, Insect Bite Sensitivity, Itchy/Watery Eyes, Nasal Congestion, Post Nasal Drip, Seasonal Allergies, Other Hematological and Lymphatic: No: Bleeding Problems, Blood Clots, Blood Transfusions, Brusing, Night Sweats, Pallor, Swollen Lymph Nodes, Other ENDOCRINE: No: Breast Changes, Galactorrhea, Hair Pattern Changes, Hot Flashes , Malaise/lethargy, Mood Swings, Palpitations, Polydipsia/polyuria, Skin Changes , Temperature Intolerance, Unexpected Weight Changes, Other Breast: No New/Changing Breast Lumps, No Nipple changes, No Nipple discharge, No Other Respiratory: No: Cough, Hemoptysis, Orthopnea, Pleuritic Pain, Shortness of breath, SOB with excertion, Sputum Changes, Stridor, Tachypnea, Wheezing, Other Cardiovascular: No Chest Pain, No Palpitations, No Orthopnea, No Paroxysmal Noc. Dyspnea, No Edema, No Lt Headedness, No Other Gastrointestinal: No Nausea, No Vomiting, No Abdominal Pain, No Diarrhea, No Constipation, No Melena, No Hematochezia, No Other Genitourinary: No Dysuria, No Frequency, No Incontinence, No Hematuria, No Retention, No Discharge, No Urgency, No Pain, No Flank Pain, No Other, No , No , No , No , No , No , No Musculoskeletal: No Gait Disturbance, No Joint Pain, No Joint Stiffness, No Joint Swelling, No Muscle Pain, No Muscular Weakness, No Pain In:, No Swelling In:, No Other Neurological: No Behavorial Changes, No Bowel/Bladder ControlChng, No Confusion , No Dizziness, No Gait Disturbance, No Headaches, No Impaired Coord/balance, No Memory Loss, No Numbness/Tingling, No Seizures, No Speech Problems, No Tremors, No Visual Changes, No Weakness, No Other Skin: No Dry Skin, No Eczema, No Hair Changes, No Lumps, No Mole Changes, No Mottling, No Nail Changes, No Pruritus, No Rash, No Skin Lesion Changes, No Other, No Acne Physical Exam General: Alert, Cooperative, No acute distress HEENT: PERRLA Lungs: Clear to auscultation, Normal air movement Heart: Regular rate, Normal S1, Normal S2 Abdomen: Normal bowel sounds, Soft, No hepatosplenomegaly Vitals VITALS Vital Signs Date Time Temp Pulse Resp B/P (MAP) Pulse Ox O2 Delivery O2 Flow Rate FiO2 12/11/18 07:05 98.3 67 18 110/57 (74) 96 Room Air 98.3 Labs Labs Laboratory Tests Test 12/09/18 23:13 12/09/18 23:15 12/11/18 03:30 12/11/18 03:35 White Blood Count 2.0 x10^3/uL (4.0-11.0) 1.3 x10^3/uL (4.0-11.0) Red Blood Count 3.02 x10^6/uL (3.50-5.40) 2.67 x10^6/uL (3.50-5.40) Hemoglobin 11.4 g/dL (12.0-15.5) 10.2 g/dL (12.0-15.5) Hematocrit 33.1 % (36.0-47.0) 29.7 % (36.0-47.0) Mean Corpuscular Volume 110 fL (79-100) 111 fL (79-100) Mean Corpuscular Hemoglobin 38 pg (25-35) 38 pg (25-35) Mean Corpuscular Hemoglobin Concent 34 g/dL (31-37) 34 g/dL (31-37) Red Cell Distribution Width 16.0 % (11.5-14.5) 15.9 % (11.5-14.5) Platelet Count 88 x10^3/uL (140-400) 64 x10^3/uL (140-400) Neutrophils (%) (Auto) 30 % (31-73) 18 % (31-73) Lymphocytes (%) (Auto) 56 % (24-48) 67 % (24-48) Monocytes (%) (Auto) 9 % (0-9) 11 % (0-9) Eosinophils (%) (Auto) 3 % (0-3) 4 % (0-3) Basophils (%) (Auto) 2 % (0-3) 1 % (0-3) Neutrophils # (Auto) 0.6 x10^3uL (1.8-7.7) 0.2 x10^3uL (1.8-7.7) Lymphocytes # (Auto) 1.1 x10^3/uL (1.0-4.8) 0.9 x10^3/uL (1.0-4.8) Monocytes # (Auto) 0.2 x10^3/uL (0.0-1.1) 0.1 x10^3/uL (0.0-1.1) Eosinophils # (Auto) 0.1 x10^3/uL (0.0-0.7) 0.1 x10^3/uL (0.0-0.7) Basophils # (Auto) 0.0 x10^3/uL (0.0-0.2) 0.0 x10^3/uL (0.0-0.2) Segmented Neutrophils % 27 % (35-66) Lymphocytes % 58 % (24-48) Monocytes % 12 % (0-10) Eosinophils % 3 % (0-5) Platelet Estimate Decreased (ADEQUATE) Macrocytosis Slight Prothrombin Time 13.5 SEC (11.7-14.0) Prothromb Time International Ratio 1.1 (0.8-1.1) Activated Partial Thromboplast Time 48 SEC (24-38) Sodium Level 138 mmol/L (136-145) 142 mmol/L (136-145) Potassium Level 3.7 mmol/L (3.5-5.1) 3.4 mmol/L (3.5-5.1) Chloride Level 102 mmol/L (98-107) 109 mmol/L (98-107) Carbon Dioxide Level 23 mmol/L (21-32) 25 mmol/L (21-32) Anion Gap 13 (6-14) 8 (6-14) Blood Urea Nitrogen 9 mg/dL (7-20) 8 mg/dL (7-20) Creatinine 0.8 mg/dL (0.6-1.0) 0.6 mg/dL (0.6-1.0) Estimated GFR (Cockcroft-Gault) 75.9 105.4 BUN/Creatinine Ratio 11 (6-20) 13 (6-20) Glucose Level 89 mg/dL (70-99) 90 mg/dL (70-99) Calcium Level 8.6 mg/dL (8.5-10.1) 8.0 mg/dL (8.5-10.1) Magnesium Level 2.2 mg/dL (1.8-2.4) Total Bilirubin 0.4 mg/dL (0.2-1.0) 0.6 mg/dL (0.2-1.0) Aspartate Amino Transf (AST/SGOT) 81 U/L (15-37) 73 U/L (15-37) Alanine Aminotransferase (ALT/SGPT) 34 U/L (14-59) 30 U/L (14-59) Alkaline Phosphatase 174 U/L (46-116) 146 U/L (46-116) Total Protein 7.1 g/dL (6.4-8.2) 5.9 g/dL (6.4-8.2) Albumin 2.9 g/dL (3.4-5.0) 2.4 g/dL (3.4-5.0) Albumin/Globulin Ratio 0.7 (1.0-1.7) 0.7 (1.0-1.7) Lipase 138 U/L (73-393) Ethyl Alcohol Level 204 mg/dL (0-10) Urine Color Yellow Urine Clarity Clear Urine pH 5.5 Urine Specific [place] <=1.005 Urine Protein Negative mg/dL (NEG-TRACE) Urine Glucose (UA) Negative mg/dL (NEG) Urine Ketones (Stick) Negative mg/dL (NEG) Urine Blood Negative (NEG) Urine Nitrite Negative (NEG) Urine Bilirubin Negative (NEG) Urine Urobilinogen Dipstick 0.2 mg/dL (0.2 mg/dL) Urine Leukocyte Esterase Negative (NEG) Urine RBC Rare /HPF (0-2) Urine WBC Occ /HPF (0-4) Urine Squamous Epithelial Cells Occ /LPF Urine Renal Epithelial Cells Occ /LPF Urine Amorphous Sediment Present /HPF Urine Bacteria 0 /HPF (0-FEW) Urine Opiates Screen Pos (NEG) Urine Methadone Screen Neg (NEG) Urine Barbiturates Neg (NEG) Urine Phencyclidine Screen Neg (NEG) Urine Amphetamine/Methamphetamine Neg (NEG) Urine Benzodiazepines Screen Neg (NEG) Urine Cocaine Screen Neg (NEG) Urine Cannabinoids Screen Neg (NEG) Urine Ethyl Alcohol Pos (NEG) Laboratory Tests Test 12/11/18 03:30 12/11/18 03:35 White Blood Count 1.3 x10^3/uL (4.0-11.0) Red Blood Count 2.67 x10^6/uL (3.50-5.40) Hemoglobin 10.2 g/dL (12.0-15.5) Hematocrit 29.7 % (36.0-47.0) Mean Corpuscular Volume 111 fL (79-100) Mean Corpuscular Hemoglobin 38 pg (25-35) Mean Corpuscular Hemoglobin Concent 34 g/dL (31-37) Red Cell Distribution Width 15.9 % (11.5-14.5) Platelet Count 64 x10^3/uL (140-400) Neutrophils (%) (Auto) 18 % (31-73) Lymphocytes (%) (Auto) 67 % (24-48) Monocytes (%) (Auto) 11 % (0-9) Eosinophils (%) (Auto) 4 % (0-3) Basophils (%) (Auto) 1 % (0-3) Neutrophils # (Auto) 0.2 x10^3uL (1.8-7.7) Lymphocytes # (Auto) 0.9 x10^3/uL (1.0-4.8) Monocytes # (Auto) 0.1 x10^3/uL (0.0-1.1) Eosinophils # (Auto) 0.1 x10^3/uL (0.0-0.7) Basophils # (Auto) 0.0 x10^3/uL (0.0-0.2) Sodium Level 142 mmol/L (136-145) Potassium Level 3.4 mmol/L (3.5-5.1) Chloride Level 109 mmol/L (98-107) Carbon Dioxide Level 25 mmol/L (21-32) Anion Gap 8 (6-14) Blood Urea Nitrogen 8 mg/dL (7-20) Creatinine 0.6 mg/dL (0.6-1.0) Estimated GFR (Cockcroft-Gault) 105.4 BUN/Creatinine Ratio 13 (6-20) Glucose Level 90 mg/dL (70-99) Calcium Level 8.0 mg/dL (8.5-10.1) Total Bilirubin 0.6 mg/dL (0.2-1.0) Aspartate Amino Transf (AST/SGOT) 73 U/L (15-37) Alanine Aminotransferase (ALT/SGPT) 30 U/L (14-59) Alkaline Phosphatase 146 U/L (46-116) Total Protein 5.9 g/dL (6.4-8.2) Albumin 2.4 g/dL (3.4-5.0) Albumin/Globulin Ratio 0.7 (1.0-1.7) Assessment/Plan Assessment/Plan 53 yo female with history of depression and etoh abuse presented to the hospital after drinking and taking clonazepam. Consulted for pancytopenia. 1. Pancytopenia. -Most likely this is from acute etoh intoxication. She also has an enlarged liver and has a questionable diagnosis of cirrhosis. She could be chronically pancytopenic from liver disease as well. Unfortunately, we do not have labs in the [facility] to compare to when she is not acutely here for etoh intoxication. Her b12 from August was normal and I do not think that we need to repeat it today. She is receiving folic acid, so little value in testing her folic acid level. 2. Suicidal Attempt. She is on 1:1. PAT team was consulted 3. Liver disease. She should obstain from further etoh and follow-up with hepatology as an outpatient. JACK WEBSTER MD Dec 11, 2018 09:44
[2018-12-11 10:07] VITALS: BP 123/78
[2018-12-11] MEDS: MULTIVIT INFUSN,ADULT 4,VIT K 10 ML, THIAMINE INJ 100 MG, FOLIC ACID INJ 1 MG in IV NOR... IV SCH (10:14)
--- NOTE | 2018-12-11 10:34 | PDOC ---
Infectious Disease Note Vital Sign Vital Signs Vital Signs Date Time Temp Pulse Resp B/P (MAP) Pulse Ox O2 Delivery O2 Flow Rate FiO2 12/11/18 08:00 Room Air 12/11/18 07:05 98.3 67 18 110/57 (74) 96 98.3 Labs Lab Laboratory Tests Test 12/11/18 03:30 12/11/18 03:35 White Blood Count 1.3 x10^3/uL (4.0-11.0) Red Blood Count 2.67 x10^6/uL (3.50-5.40) Hemoglobin 10.2 g/dL (12.0-15.5) Hematocrit 29.7 % (36.0-47.0) Mean Corpuscular Volume 111 fL (79-100) Mean Corpuscular Hemoglobin 38 pg (25-35) Mean Corpuscular Hemoglobin Concent 34 g/dL (31-37) Red Cell Distribution Width 15.9 % (11.5-14.5) Platelet Count 64 x10^3/uL (140-400) Neutrophils (%) (Auto) 18 % (31-73) Lymphocytes (%) (Auto) 67 % (24-48) Monocytes (%) (Auto) 11 % (0-9) Eosinophils (%) (Auto) 4 % (0-3) Basophils (%) (Auto) 1 % (0-3) Neutrophils # (Auto) 0.2 x10^3uL (1.8-7.7) Lymphocytes # (Auto) 0.9 x10^3/uL (1.0-4.8) Monocytes # (Auto) 0.1 x10^3/uL (0.0-1.1) Eosinophils # (Auto) 0.1 x10^3/uL (0.0-0.7) Basophils # (Auto) 0.0 x10^3/uL (0.0-0.2) Sodium Level 142 mmol/L (136-145) Potassium Level 3.4 mmol/L (3.5-5.1) Chloride Level 109 mmol/L (98-107) Carbon Dioxide Level 25 mmol/L (21-32) Anion Gap 8 (6-14) Blood Urea Nitrogen 8 mg/dL (7-20) Creatinine 0.6 mg/dL (0.6-1.0) Estimated GFR (Cockcroft-Gault) 105.4 BUN/Creatinine Ratio 13 (6-20) Glucose Level 90 mg/dL (70-99) Calcium Level 8.0 mg/dL (8.5-10.1) Total Bilirubin 0.6 mg/dL (0.2-1.0) Aspartate Amino Transf (AST/SGOT) 73 U/L (15-37) Alanine Aminotransferase (ALT/SGPT) 30 U/L (14-59) Alkaline Phosphatase 146 U/L (46-116) Total Protein 5.9 g/dL (6.4-8.2) Albumin 2.4 g/dL (3.4-5.0) Albumin/Globulin Ratio 0.7 (1.0-1.7) Objective Assessment Diarrhea. h/o C. difficile, 10/01/2018. Recently treated for sinus infection Leukopenia/pancytopenia likely to alcoholism Drug overdose Alcoholism Liver disease Plan Plan of Care start po vanc empirically check stool for c. diff Monitor labs Hold Imodium Hydration D/w nursing Thank you [id number] Patient seen and examined. Chart reviewed in detail. Case discussed with [employer] APPRENTICE. Agree with above plan. MICHAEL LAGUERRE [employer] Dec 11, 2018 10:34 LAURA VALADEZ MD Dec 11, 2018 18:52
[2018-12-11] MEDS: VANCOMYCIN 125 MG/2.5 ML ORAL SOLUTION. PO SCH ×3 (12:42→20:37)
--- NOTE | 2018-12-11 14:04 | NUR ---
PAT TEAM NOTIFIED DUE TO PT BEING IN THE HOSPITAL SINCE WEDNESDAY WITH OUT BEING SEEN. DEVAUGHN NOTIFIED AND CALLED RIGHT BACK STATING THEY NEVRE GOT CONSULTED BY THE ER STATED IN THE ER NOTE.
[2018-12-11 14:13] VITALS: BP 123/72
--- NOTE | 2018-12-11 16:57 | NUR ---
PER DR LITTLE PT IS ALLOWED VISITORS WITH A 1 TO 1 PRESENT. PT WILL BE ASSESSED IN THE MORNING BY OTIS FROM THE PAT TEAM AND WILL BE CLEARED TO GO HOME TOMMOROW.
[2018-12-11] MEDS ORDERED: LORazepam 0.5 MG TABLET PO PRN (17:00)
[2018-12-11 19:00] VITALS: BP 127/78
[2018-12-11 23:00] VITALS: BP 173/104
--- NOTE | 2018-12-12 02:54 | CONS ---
DATE OF CONSULTATION: 12/11/2018 REFERRING PHYSICIAN: Dr. Little REASON FOR CONSULTATION: Diarrhea with a history of Clostridium difficile. HISTORY OF PRESENT ILLNESS: This patient is a 53-year-old female with a history of heavy alcohol use who was brought to the ER via EMS after apparently overdosing on clonazepam with attempt to commit suicide. Urine drug screen was positive for opiates and blood alcohol level was 204. EKG showed sinus rhythm with prolonged QT. She received IV fluids with thiamine, folic acid and magnesium. On admission, she was pancytopenic likely related to alcohol intoxication. She was seen by Dr. Barakat of Hematology. The patient was admitted a couple of months ago for alcoholic hepatitis and Clostridium difficile. The patient says she finished taking oral vancomycin, but continued to have 3-4 bouts of diarrhea a day, which she controls with daily Imodium. She complains of nausea, vomiting, cramps and diminished appetite. She says she has lost about 7 pounds within 2 months. She says she was recently on antibiotics for a sinus infection. PAST MEDICAL HISTORY: Liver disease, alcoholism, Clostridium difficile on 10/01/2018, hypertension, DVT, depression, anxiety. PAST SURGICAL HISTORY: Right arm fracture, left ankle fracture, appendectomy. FAMILY HISTORY: Positive for lung cancer, suicide, alcohol abuse. SOCIAL HISTORY: The patient lives at home. She is . Long history of heavy alcohol abuse. She drinks about 1 pint of whiskey and a couple of beers daily. ALLERGIES: SULFA. MEDICATIONS: Vitamin C, Librium, Catapres, Benadryl, fluoxetine, folic acid, Haldol, ibuprofen, probiotics, Ativan, multivitamin, Zofran, Protonix, potassium chloride, thiamine. REVIEW OF SYSTEMS: Per HPI, otherwise all other review of systems are negative. PHYSICAL EXAMINATION: VITAL SIGNS: Temperature 98.3, blood pressure 110/57, heart rate 67, respiratory rate 18, pulse oximetry is 96% on room air. BMI 20. GENERAL: The patient is lying down with the covers over her head. HEENT: Pupils are equally round. Normal conjunctivae. Oral cavity: Pharynx pink and dry. NECK: Supple. LUNGS: Clear to auscultation. HEART: S1, S2. ABDOMEN: Obese, soft and nontender with bowel sounds present. EXTREMITIES: No gross edema or cyanosis. SKIN: Warm without rash. NEUROLOGIC: Arouses easily to name, oriented x 3, irritable, but cooperative. LABORATORY DATA: Today's WBC 1.3 from 2.0; hemoglobin 10.2; platelets 64,000. Creatinine 0.6, BUN 8, sodium 142, potassium 3.4, total bilirubin 0.6, AST 73, ALT 30, albumin 2.4, lipase 138. Urine toxicology positive for opiates and alcohol. Urinalysis unremarkable for infection. C. diff PCR pending. ASSESSMENT: 1. Diarrhea. History of Clostridium difficile in September 2018. 2. Recently treated for sinus infection. 3. Leukopenia/pancytopenia likely related to alcoholism. 4. Drug overdose. 5. Alcoholism. 6. Liver disease. PLAN: A C. difficile PCR has been ordered. We will start oral vancomycin empirically given recent history of Clostridium difficile and antibiotic use. Continue to monitor laboratory values. Hold Imodium. Maintain hydration. Discussed with nursing. Thank you, Dr. Little, for asking us to participate in this patient's care. Should you have further questions or concerns, please call. LAURA VALADEZ MD DR: GABBIE/ora JOB#: [id number] / [id number]
[2018-12-12 03:00] VITALS: BP 162/91
[2018-12-12 07:30] VITALS: BP 142/98
--- NOTE | 2018-12-12 07:44 | EKG ---
[facility] [address] [place] [address] Test Date: 2018-12-09 Test Time: 23:29:40 Pat Name: MOY OMALLEY Department: Room: 664 1 Gender: F Sexer: : 1965 Requested By: ANI LITTLE Order Number: [id number] Reading MD: Mert Concepcion Measurements Intervals [place] Rate: 80 P: 32 OR: 118 QRS: 48 QRSD: 84 T: 14 QT: 414 QTc: 481 Interpretive Statements SINUS RHYTHM PROLONGED QT Electronically Signed On 12-19-2018 12:37:40 CDT by Mert Concepcion
--- NOTE | 2018-12-12 09:01 | NUR ---
SW consulted for SI and attempt. Radha from PAT team will come in to see pt this morning. Will continue to follow.
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
[2018-12-12] MEDS ORDERED: POTASSIUM CHLORIDE 20 MEQ TABLET.ER. PO ONE (09:15)
[2018-12-12] MEDS: THIAMINE 100 MG TABLET. PO SCH (09:34)
[2018-12-12 09:35] LABS: BASO % 2 % (0-3); EOS # 0.1 x10^3/uL (0.0-0.7); EOS % 4 % (0-3); HEMATOCRIT 31.5 % (36.0-47.0); HEMOGLOBIN 11.1 g/dL (12.0-15.5); LYMPH # 0.7 x10^3/uL (1.0-4.8); LYMPH % 48 % (24-48); MEAN CORPUSCULAR HEMOGLOBIN 39 pg (25-35); MEAN CORPUSCULAR HGB CONC 35 g/dL (31-37); MEAN CORPUSCULAR VOLUME 112 fL (79-100); MONO # 0.2 x10^3/uL (0.0-1.1); MONO % 16 % (0-9); NEUT # 0.5 x10^3uL (1.8-7.7); NEUT % 31 % (31-73); PLATELET COUNT 63 x10^3/uL (140-400); RED BLOOD COUNT 2.83 x10^6/uL (3.50-5.40); RED CELL DISTRIBUTION WIDTH 15.9 % (11.5-14.5)
[2018-12-12] MEDS: FLUoxetine HCL 10 MG CAPSULE PO SCH (09:35)
[2018-12-12] MEDS: FOLIC ACID 1 MG TABLET. PO SCH (09:35)
[2018-12-12] MEDS: VANCOMYCIN 125 MG/2.5 ML ORAL SOLUTION. PO SCH ×2 (09:35→12:13)
[2018-12-12] MEDS: ASCORBIC ACID 500 MG TABLET PO SCH (09:35)
[2018-12-12] MEDS: MULTIVITAMIN with MINERAL TABLET. PO SCH (09:35)
[2018-12-12] MEDS: LACTOBACILLUS RHAMNOSUS GG 1 CAPSULE. PO SCH (09:35)
[2018-12-12] MEDS: PANTOPRAZOLE 40 MG TABLET.DR. PO SCH (09:35)
[2018-12-12] MEDS: MULTIVIT INFUSN,ADULT 4,VIT K 10 ML, THIAMINE INJ 100 MG, FOLIC ACID INJ 1 MG in IV NOR... IV SCH (09:36)
[2018-12-12 09:37] LABS: WHITE BLOOD COUNT 1.5 x10^3/uL (4.0-11.0)
[2018-12-12 09:44] LABS: ALBUMIN 2.7 g/dL (3.4-5.0); ALBUMIN/GLOBULIN RATIO 0.7 (1.0-1.7); CALCIUM 8.7 mg/dL (8.5-10.1); CREATININE 0.8 mg/dL (0.6-1.0); GFR 75.6; POTASSIUM 3.9 mmol/L (3.5-5.1); TOTAL BILIRUBIN 0.7 mg/dL (0.2-1.0); TOTAL PROTEIN 6.7 g/dL (6.4-8.2)
--- NOTE | 2018-12-12 11:11 | PDOC ---
Infectious Disease Note Subjective: Subjective pt says feels ok did not have any diarrhea this am as took some immodium yesterday night no f/c/n/v/d LUE swelling has improved since last admission Vital Signs: Vital Signs Vital Signs Date Time Temp Pulse Resp B/P (MAP) Pulse Ox O2 Delivery O2 Flow Rate FiO2 12/12/18 08:00 Room Air 12/12/18 07:30 97.9 53 18 142/98 (113) 95 97.9 Physical Exam: PHYSICAL EXAM GENERAL: The patient is lying down with the covers over her head. HEENT: Pupils are equally round. Normal conjunctivae. Oral cavity: Pharynx pink and dry. NECK: Supple. LUNGS: Clear to auscultation. HEART: S1, S2. ABDOMEN: Obese, soft and nontender with bowel sounds present. EXTREMITIES: No gross edema or cyanosis. SKIN: Warm without rash. NEUROLOGIC: Arouses easily to name, oriented x 3, irritable, but cooperative Medications: Inpatient Meds: Current Medications Medications (Trade) Dose Ordered Sig/Miguel Start Time Stop Time Status Last Admin Dose Admin Ascorbic Acid (Vitamin C) 500 mg DAILY 12/11/18 09:00 12/12/18 09:35 500 MG Chlordiazepoxide (Librium) 25 mg PRN Q6HRS PRN 12/11/18 08:15 12/11/18 10:13 25 MG Clonidine HCl (Catapres) 0.1 mg PRN Q1HR PRN 12/10/18 10:00 Diphenhydramine HCl (Benadryl) 25 mg PRN Q15MIN PRN 12/10/18 10:00 12/11/18 22:20 25 MG Fluoxetine HCl (PROzac) 10 mg DAILY 12/10/18 20:00 12/12/18 09:35 10 MG Folic Acid (Folic Acid) 1 mg DAILY 12/11/18 09:00 12/12/18 09:35 1 MG Haloperidol Lactate (Haldol Inj) 5 mg PRN Q4HRS PRN 12/10/18 10:00 Ibuprofen (Motrin) 400 mg PRN Q6HRS PRN 12/11/18 09:00 Lactobacillus Rhamnosus (Culturelle) 1 cap BID 12/10/18 21:00 12/12/18 09:35 1 CAP Loperamide HCl (Imodium) 2 mg PRN Q15MIN PRN 12/10/18 20:45 12/11/18 08:08 DC 12/10/18 21:23 2 MG Lorazepam (Ativan) 0.25 mg PRN QHS PRN 12/11/18 17:00 12/11/18 20:39 0.25 MG Multivitamins (Thera M Plus) 1 tab DAILY 12/11/18 09:00 12/12/18 09:35 1 TAB Multivitamins 10 ml/Thiamine HCl 100 mg/Folic Acid 1 mg/Sodium Chloride 1,011.2 ml @ 100 mls/ hr DAILY 12/11/18 09:00 12/15/18 19:07 12/12/18 09:36 100 MLS/HR Non-Formulary Medication (Fluoxetine Hcl ) 10 mg DAILY 12/11/18 09:00 12/11/18 09:00 DC Ondansetron HCl (Zofran) 4 mg PRN Q6HRS PRN 12/11/18 08:15 Pantoprazole Sodium (Protonix) 40 mg DAILYAC 12/11/18 07:30 12/12/18 09:35 40 MG Potassium Chloride (Klor-Con) 20 meq [id number] 12/13/18 08:00 Sodium Chloride 1,000 ml @ 1,000 mls/hr 1X ONCE 12/09/18 23:30 12/10/18 00:29 DC 12/09/18 23:24 1,000 MLS/HR Thiamine Mononitrate (Vitamin B-1) 100 mg DAILY 12/11/18 09:00 12/12/18 09:34 100 MG Vancomycin HCl (Vancomycin Oral Solution) 125 mg [id number] 12/11/18 13:00 12/12/18 09:35 125 MG Labs: Lab Laboratory Tests Test 12/12/18 09:14 White Blood Count 1.5 x10^3/uL (4.0-11.0) Red Blood Count 2.83 x10^6/uL (3.50-5.40) Hemoglobin 11.1 g/dL (12.0-15.5) Hematocrit 31.5 % (36.0-47.0) Mean Corpuscular Volume 112 fL (79-100) Mean Corpuscular Hemoglobin 39 pg (25-35) Mean Corpuscular Hemoglobin Concent 35 g/dL (31-37) Red Cell Distribution Width 15.9 % (11.5-14.5) Platelet Count 63 x10^3/uL (140-400) Neutrophils (%) (Auto) 31 % (31-73) Lymphocytes (%) (Auto) 48 % (24-48) Monocytes (%) (Auto) 16 % (0-9) Eosinophils (%) (Auto) 4 % (0-3) Basophils (%) (Auto) 2 % (0-3) Neutrophils # (Auto) 0.5 x10^3uL (1.8-7.7) Lymphocytes # (Auto) 0.7 x10^3/uL (1.0-4.8) Monocytes # (Auto) 0.2 x10^3/uL (0.0-1.1) Eosinophils # (Auto) 0.1 x10^3/uL (0.0-0.7) Basophils # (Auto) 0.0 x10^3/uL (0.0-0.2) Sodium Level 142 mmol/L (136-145) Potassium Level 3.9 mmol/L (3.5-5.1) Chloride Level 107 mmol/L (98-107) Carbon Dioxide Level 26 mmol/L (21-32) Anion Gap 9 (6-14) Blood Urea Nitrogen 6 mg/dL (7-20) Creatinine 0.8 mg/dL (0.6-1.0) Estimated GFR (Cockcroft-Gault) 75.6 BUN/Creatinine Ratio 8 (6-20) Glucose Level 89 mg/dL (70-99) Calcium Level 8.7 mg/dL (8.5-10.1) Total Bilirubin 0.7 mg/dL (0.2-1.0) Aspartate Amino Transf (AST/SGOT) 56 U/L (15-37) Alanine Aminotransferase (ALT/SGPT) 30 U/L (14-59) Alkaline Phosphatase 153 U/L (46-116) Total Protein 6.7 g/dL (6.4-8.2) Albumin 2.7 g/dL (3.4-5.0) Albumin/Globulin Ratio 0.7 (1.0-1.7) Objective: Assessment: Diarrhea. h/o C. difficile, 10/01/2018. Repeat C diff pcr pending Recently treated for sinus infection Leukopenia/pancytopenia likely to alcoholism Drug overdose Alcoholism Liver disease/ Pancreatitis Thrombocytopenia, resolved. H/O Occlusive Superficial vein thrombosis identified in the Lt cephalic vein Plan: Plan of Care Cont po vanc f/u C diff Monitor labs Hold Imodium,do not give any more doses for now pending c diff pcr Hydration D/W nursing LUCIUS GUILLEN MD Dec 12, 2018 11:11
[2018-12-12 12:08] VITALS: BP 138/97
--- NOTE | 2018-12-12 12:18 | PDOC ---
PROGRESS NOTES Subjective Subjective HPI - f/u of Pancytopenia. ROS - no bleed Objective Objective Vital Signs Date Time Temp Pulse Resp B/P (MAP) Pulse Ox O2 Delivery O2 Flow Rate FiO2 12/12/18 12:08 98.4 72 18 138/97 (111) 97 Room Air 98.4 Intake and Output 12/12/18 06:59 Intake Total 390 ml Balance 390 ml Intake Oral 390 ml # Voids 9 Assessment Assessment Problems Medical Problems: (1) Alcohol intoxication Status: Acute (2) Neutropenia Status: Acute (3) Pancytopenia Status: Acute (4) Suicidal intent Status: Acute 53 yo female with history of depression and etoh abuse presented to the hospital after drinking and taking clonazepam. Consulted for pancytopenia. 1. Pancytopenia. -Most likely this is from acute etoh intoxication. She also has an enlarged liver and has a questionable diagnosis of cirrhosis. She could be chronically pancytopenic from liver disease as well. -continue supportive care, Monitor cbc PRN. WBC 1.5, cont neutropenic precautions. 2. Liver disease. She should obstain from further etoh and follow-up with hepatology as an outpatient. Comment Review of Relevant I have reviewed the following items romeo (where applicable) has been applied. Labs Laboratory Tests Test 12/11/18 03:30 12/11/18 03:35 12/12/18 09:14 White Blood Count 1.3 x10^3/uL (4.0-11.0) 1.5 x10^3/uL (4.0-11.0) Red Blood Count 2.67 x10^6/uL (3.50-5.40) 2.83 x10^6/uL (3.50-5.40) Hemoglobin 10.2 g/dL (12.0-15.5) 11.1 g/dL (12.0-15.5) Hematocrit 29.7 % (36.0-47.0) 31.5 % (36.0-47.0) Mean Corpuscular Volume 111 fL (79-100) 112 fL (79-100) Mean Corpuscular Hemoglobin 38 pg (25-35) 39 pg (25-35) Mean Corpuscular Hemoglobin Concent 34 g/dL (31-37) 35 g/dL (31-37) Red Cell Distribution Width 15.9 % (11.5-14.5) 15.9 % (11.5-14.5) Platelet Count 64 x10^3/uL (140-400) 63 x10^3/uL (140-400) Neutrophils (%) (Auto) 18 % (31-73) 31 % (31-73) Lymphocytes (%) (Auto) 67 % (24-48) 48 % (24-48) Monocytes (%) (Auto) 11 % (0-9) 16 % (0-9) Eosinophils (%) (Auto) 4 % (0-3) 4 % (0-3) Basophils (%) (Auto) 1 % (0-3) 2 % (0-3) Neutrophils # (Auto) 0.2 x10^3uL (1.8-7.7) 0.5 x10^3uL (1.8-7.7) Lymphocytes # (Auto) 0.9 x10^3/uL (1.0-4.8) 0.7 x10^3/uL (1.0-4.8) Monocytes # (Auto) 0.1 x10^3/uL (0.0-1.1) 0.2 x10^3/uL (0.0-1.1) Eosinophils # (Auto) 0.1 x10^3/uL (0.0-0.7) 0.1 x10^3/uL (0.0-0.7) Basophils # (Auto) 0.0 x10^3/uL (0.0-0.2) 0.0 x10^3/uL (0.0-0.2) Sodium Level 142 mmol/L (136-145) 142 mmol/L (136-145) Potassium Level 3.4 mmol/L (3.5-5.1) 3.9 mmol/L (3.5-5.1) Chloride Level 109 mmol/L (98-107) 107 mmol/L (98-107) Carbon Dioxide Level 25 mmol/L (21-32) 26 mmol/L (21-32) Anion Gap 8 (6-14) 9 (6-14) Blood Urea Nitrogen 8 mg/dL (7-20) 6 mg/dL (7-20) Creatinine 0.6 mg/dL (0.6-1.0) 0.8 mg/dL (0.6-1.0) Estimated GFR (Cockcroft-Gault) 105.4 75.6 BUN/Creatinine Ratio 13 (6-20) 8 (6-20) Glucose Level 90 mg/dL (70-99) 89 mg/dL (70-99) Calcium Level 8.0 mg/dL (8.5-10.1) 8.7 mg/dL (8.5-10.1) Total Bilirubin 0.6 mg/dL (0.2-1.0) 0.7 mg/dL (0.2-1.0) Aspartate Amino Transf (AST/SGOT) 73 U/L (15-37) 56 U/L (15-37) Alanine Aminotransferase (ALT/SGPT) 30 U/L (14-59) 30 U/L (14-59) Alkaline Phosphatase 146 U/L (46-116) 153 U/L (46-116) Total Protein 5.9 g/dL (6.4-8.2) 6.7 g/dL (6.4-8.2) Albumin 2.4 g/dL (3.4-5.0) 2.7 g/dL (3.4-5.0) Albumin/Globulin Ratio 0.7 (1.0-1.7) 0.7 (1.0-1.7) Laboratory Tests Test 12/12/18 09:14 White Blood Count 1.5 x10^3/uL (4.0-11.0) Red Blood Count 2.83 x10^6/uL (3.50-5.40) Hemoglobin 11.1 g/dL (12.0-15.5) Hematocrit 31.5 % (36.0-47.0) Mean Corpuscular Volume 112 fL (79-100) Mean Corpuscular Hemoglobin 39 pg (25-35) Mean Corpuscular Hemoglobin Concent 35 g/dL (31-37) Red Cell Distribution Width 15.9 % (11.5-14.5) Platelet Count 63 x10^3/uL (140-400) Neutrophils (%) (Auto) 31 % (31-73) Lymphocytes (%) (Auto) 48 % (24-48) Monocytes (%) (Auto) 16 % (0-9) Eosinophils (%) (Auto) 4 % (0-3) Basophils (%) (Auto) 2 % (0-3) Neutrophils # (Auto) 0.5 x10^3uL (1.8-7.7) Lymphocytes # (Auto) 0.7 x10^3/uL (1.0-4.8) Monocytes # (Auto) 0.2 x10^3/uL (0.0-1.1) Eosinophils # (Auto) 0.1 x10^3/uL (0.0-0.7) Basophils # (Auto) 0.0 x10^3/uL (0.0-0.2) Sodium Level 142 mmol/L (136-145) Potassium Level 3.9 mmol/L (3.5-5.1) Chloride Level 107 mmol/L (98-107) Carbon Dioxide Level 26 mmol/L (21-32) Anion Gap 9 (6-14) Blood Urea Nitrogen 6 mg/dL (7-20) Creatinine 0.8 mg/dL (0.6-1.0) Estimated GFR (Cockcroft-Gault) 75.6 BUN/Creatinine Ratio 8 (6-20) Glucose Level 89 mg/dL (70-99) Calcium Level 8.7 mg/dL (8.5-10.1) Total Bilirubin 0.7 mg/dL (0.2-1.0) Aspartate Amino Transf (AST/SGOT) 56 U/L (15-37) Alanine Aminotransferase (ALT/SGPT) 30 U/L (14-59) Alkaline Phosphatase 153 U/L (46-116) Total Protein 6.7 g/dL (6.4-8.2) Albumin 2.7 g/dL (3.4-5.0) Albumin/Globulin Ratio 0.7 (1.0-1.7) Medications Current Medications Sodium Chloride 1,000 ml @ 1,000 mls/hr 1X ONCE IV Last administered on at 23:24; Start 12/09/18 at 23:30; Stop 12/10/18 at 00:29; Status DC Multivitamins 10 ml/Thiamine HCl 100 mg/Folic Acid 1 mg/Sodium Chloride 1,011.2 ml @ 1,000.088 mls/hr 1X ONCE IV Last administered on 12/10/18at 00:22; Start 12/10/18 at 00:00; Stop 12/10/18 at 01:00; Status DC Ondansetron HCl (Zofran) 4 mg PRN Q8HRS PRN IV NAUSEA/VOMITING 1ST CHOICE; Start 12/10/18 at 01:15; Stop 12/11/18 at 01:14; Status DC Lorazepam (Ativan) 1 mg PRN Q4HRS PRN IV WITHDRAWAL IRRITABILITY Last administered on 12/11/18at 22:19; Start 12/10/18 at 01:15 Multivitamins 10 ml/Thiamine HCl 100 mg/Folic Acid 1 mg/Sodium Chloride 1,011.2 ml @ 100 mls/ hr DAILY IV Last administered on 12/12/18 09:36; Start at 09:00; Stop 12/15/18 at 19:07 Haloperidol Lactate (Haldol Inj) 5 mg PRN Q4HRS PRN IVP Hallucinatns,Confusn, Delirium; Start 12/10/18 at 10:00 Diphenhydramine HCl (Benadryl) 25 mg PRN Q15MIN PRN IVP EPS symptoms 2'Haldol admin Last administered on 12/11/18at 22:20; Start 12/10/18 at 10:00 Clonidine HCl (Catapres) 0.1 mg PRN Q1HR PRN PO SBP > 180 or DBP > 100, MRX3; Start 12/10/18 at 10:00 Folic Acid (Folic Acid) 1 mg DAILY PO Last administered on 12/12/18at 09:35; Start 12/11/18 at 09:00 Lactobacillus Rhamnosus (Culturelle) 1 cap BID PO Last administered on at 09:35; Start 12/10/18 at 21:00 Ascorbic Acid (Vitamin C) 500 mg DAILY PO Last administered on 12/12/18at 09:35 ; Start 12/11/18 at 09:00 Multivitamins (Thera M Plus) 1 tab DAILY PO Last administered on 12/12/18 09: 35; Start 12/11/18 at 09:00 Thiamine Mononitrate (Vitamin B-1) 100 mg DAILY PO Last administered on at 09:34; Start 12/11/18 at 09:00 Pantoprazole Sodium (Protonix) 40 mg DAILYAC PO Last administered on 12/12/18at 09:35; Start 12/11/18 at 07:30 Non-Formulary Medication (Fluoxetine Hcl ) 10 mg DAILY PO ; Start 12/11/18 at 09 :00; Stop 12/11/18 at 09:00; Status DC Fluoxetine HCl (PROzac) 10 mg DAILY PO Last administered on 12/12/18at 09:35; Start 12/10/18 at 20:00 Loperamide HCl (Imodium) 2 mg PRN Q15MIN PRN PO DIARRHEA Last administered on at 21:23; Start 12/10/18 at 20:45; Stop 12/11/18 at 08:08; Status DC Chlordiazepoxide (Librium) 25 mg PRN Q6HRS PRN PO ANXIETY / AGITATION Last administered on 12/11/18at 10:13; Start 12/11/18 at 08:15 Ondansetron HCl (Zofran) 4 mg PRN Q6HRS PRN IV NAUSEA/VOMITING; Start 12/11/18 at 08:15 Potassium Chloride (Klor-Con) 40 meq 1X ONCE PO Last administered on at 10:13; Start 12/11/18 at 08:15; Stop 12/11/18 at 08:16; Status DC Ibuprofen (Motrin) 400 mg PRN Q6HRS PRN PO INFLAMMATION; Start 12/11/18 at 09: 00 Vancomycin HCl (Vancomycin Oral Solution) 125 mg [id number] PO Last administered on 12/12/18at 12:13; Start 12/11/18 at 13:00 Lorazepam (Ativan) 0.25 mg PRN QHS PRN PO ANXIETY / AGITATION Last administered on 12/11/18at 20:39; Start 12/11/18 at 17:00 Potassium Chloride (Klor-Con) 40 meq 1X ONCE PO Last administered on 09:34; Start 12/12/18 at 09:15; Stop 12/12/18 at 09:18; Status DC Potassium Chloride (Klor-Con) 20 meq [id number] PO ; Start 12/13/18 at 08:00 Active Scripts Active Vitamin B-1 (Thiamine Mononitrate) 100 Mg Tablet 100 Mg PO DAILY 30 Days Folic Acid 1 Mg Tablet 1 Mg PO DAILY 30 Days Culturelle (Lactobacillus Rhamnosus Gg) 1 Each Cap.sprink 1 Cap PO BID 30 Days [Pantoprazole] 40 MG Tablet.dr 40 Mg PO DAILYAC 30 Days Vancomycin Hcl 500 Mg Vial 125 Mg PO [id number] 13 Days Reported Fluoxetine Hcl 10 Mg Tablet 10 Mg PO DAILY Vitamin C (Ascorbic Acid) 500 Mg Tab.chew 500 Mg PO DAILY Multivitamins (Multivitamin) 1 Each Tablet 1 Tab PO DAILY Clonazepam 0.5 Mg Tablet 0.5 Mg PO TID Clonazepam 1 Mg Tablet 1 Mg PO TID Hydrocodone-Apap 7.5-325 (Hydrocodone Bit/Acetaminophen) 1 Tab Tablet 1 Tab PO PRN Q6HRS PRN Vitals/I & O Vital Sign - Last 24 Hours 12/11/18 12/11/18 12/11/18 12/11/18 14:13 19:00 20:00 23:00 Temp 98.3 98.4 98.4 98.3 98.4 98.4 Pulse 70 74 130 Resp 18 18 18 B/P (MAP) 123/72 (89) 127/78 (94) 173/104 (127) Pulse Ox 96 97 98 O2 Delivery Room Air Room Air Room Air Room Air 12/12/18 12/12/18 12/12/18 12/12/18 03:00 07:30 08:00 11:00 Temp 98.1 97.9 98.1 97.9 Pulse 56 53 Resp 18 18 B/P (MAP) 162/91 (114) 142/98 (113) Pulse Ox 98 95 O2 Delivery Room Air Room Air Room Air Room Air 12/12/18 12:08 Temp 98.4 98.4 Pulse 72 Resp 18 B/P (MAP) 138/97 (111) Pulse Ox 97 O2 Delivery Room Air Intake and Output 12/11/18 12/11/18 12/12/18 14:59 22:59 06:59 Intake Total 100 ml 240 ml 50 ml Balance 100 ml 240 ml 50 ml NIMA ROSS MD Dec 12, 2018 12:18
--- NOTE | 2018-12-12 12:55 | NUR ---
Pt seen by Radha by PAT team and is not SI/can dc home once medically cleared. Radha will be making a residential treatment referral for pt. RN aware.
--- NOTE | 2018-12-12 13:25 | NUR ---
Patient has signed out AMA. IV taken out. MD Anabel notified. Security and staff walked patient out.
[2018-12-13] MEDS ORDERED: POTASSIUM CHLORIDE 20 MEQ TABLET.ER. PO SCH (08:00)
== END 2018-12-12 13:27 | disposition left against medical advice (07) | DRG 917 ==
LOC: ER 22:59 → 2 SOUTH 12-10 01:00 → 6 SOUTH 12-12 07:20
PROVIDERS: ADMIT Internal Medicine; ATTEND Internal Medicine
DX: T42.4X2A Poisoning by benzodiazepines, intentional self-harm, initial encounter (principal); K85.90 Acute pancreatitis without necrosis or infection, unspecified; D61.818 Other pancytopenia; E44.0 Moderate protein-calorie malnutrition; Z68.1 Body mass index [BMI] 19.9 or less, adult; D53.9 Nutritional anemia, unspecified; F10.229 Alcohol dependence with intoxication, unspecified; F17.210 Nicotine dependence, cigarettes, uncomplicated; F32.9 Major depressive disorder, single episode, unspecified; I10 Essential (primary) hypertension; K70.40 Alcoholic hepatic failure without coma; K74.60 Unspecified cirrhosis of liver; F41.9 Anxiety disorder, unspecified; R13.10 Dysphagia, unspecified; Y90.7 Blood alcohol level of 200-239 mg/100 ml; Z80.1 Family history of malignant neoplasm of trachea, bronchus and lung; Z90.49 Acquired absence of other specified parts of digestive tract; Y92.89 Other specified places as the place of occurrence of the external cause
CPT/HCPCS: 36415; 80053; 80307; 81001; 83690; 83735; 85007; 85025; 85610; 85730; 93005; 96361; 96365; 96366; G0480; J1200; J2060; J7030; 99285-25

== ENCOUNTER 2018-12-29 22:10 | Inpatient (IN) | payer SELFPAY ==
[~2018-12-29] VITALS: Ht 162.6 cm; Wt 52.6 kg
[~2018-12-29 22:10] MED LIST changes: +ASCO500T PO; +CLON0.5T11 PO; +CLON1TAB11 PO; +FLUO10TA PO; +HYDR-2765 PO; +MULT1TAB52 PO
[2018-12-29] MEDS ORDERED: ONDANSETRON PF 4 MG/2 ML VIAL. IV ONE (23:00)
[2018-12-29] MEDS ORDERED: CONTRAST GIVEN. MC PRN (23:15)
[2018-12-29] MEDS ORDERED: IOHEXOL 300 MG/ML 100ML VIAL. IV ONE (23:15)
[2018-12-29 23:24] LABS: BILIRUBIN,URINE NEGATIVE (NEG); CLARITY,URINE CLEAR; COLOR,URINE YELLOW; NITRITE,URINE NEGATIVE (NEG); PROTEIN,URINE NEGATIVE (NEG-TRACE); UROBILINOGEN,URINE 0.2 mg/dL (0.2 mg/dL)
[2018-12-29 23:28] LABS: BACTERIA,URINE FEW /HPF (0-FEW); RBC,URINE 0 /HPF (0-2); SQUAMOUS EPITHELIAL CELL,UR MOD /LPF; WBC,URINE OCC /HPF (0-4)
[2018-12-29 23:30] LABS: BARBITURATES NEG (NEG); BENZODIAZEPINES POS (NEG); CANNABINOIDS NEG (NEG); COCAINE NEG (NEG); METHADONE NEG (NEG); OPIATES NEG (NEG); PHENCYCLIDINE NEG (NEG)
[2018-12-29 23:33] LABS: AMPHETAMINE/METHAMPHETAMINE NEG (NEG)
[2018-12-29 23:36] LABS: PROTHROMBIN TIME PATIENT 13.1 SEC (11.7-14.0)
[2018-12-29 23:45] LABS: ALBUMIN/GLOBULIN RATIO 0.7 (1.0-1.7); CALCIUM 8.8 mg/dL (8.5-10.1); CREATININE 0.8 mg/dL (0.6-1.0); GFR 75.6; TOTAL BILIRUBIN 0.5 mg/dL (0.2-1.0); TOTAL PROTEIN 7.4 g/dL (6.4-8.2)
[2018-12-29 23:48] LABS: POTASSIUM 2.6 mmol/L (3.5-5.1)
[2018-12-29 23:50] LABS: BASO % 2 % (0-3); EOS # 0.1 x10^3/uL (0.0-0.7); EOS % 6 % (0-3); HEMATOCRIT 36.6 % (36.0-47.0); HEMOGLOBIN 12.7 g/dL (12.0-15.5); LYMPH # 1.1 x10^3/uL (1.0-4.8); LYMPH % 61 % (24-48); MEAN CORPUSCULAR HEMOGLOBIN 38 pg (25-35); MEAN CORPUSCULAR HGB CONC 35 g/dL (31-37); MEAN CORPUSCULAR VOLUME 111 fL (79-100); MONO # 0.2 x10^3/uL (0.0-1.1); MONO % 8 % (0-9); NEUT # 0.4 x10^3uL (1.8-7.7); NEUT % 23 % (31-73); PLATELET COUNT 106 x10^3/uL (140-400); RED BLOOD COUNT 3.31 x10^6/uL (3.50-5.40); RED CELL DISTRIBUTION WIDTH 13.4 % (11.5-14.5)
[2018-12-29 23:52] LABS: WHITE BLOOD COUNT 1.9 x10^3/uL (4.0-11.0)
[2018-12-30 00:02] LABS: % BASOS 2 % (0-3); % EOS 7 % (0-5); % LYMPHS 64 % (24-48); % MONOS 9 % (0-10); % SEGS 18 % (35-66); PLT ESTIMATE DECREASED (ADEQUATE)
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
[2018-12-30] MEDS ORDERED: POTASSIUM CHLORIDE 20 MEQ TABLET.ER. PO ONE (01:30)
[2018-12-30] MEDS ORDERED: MAGNESIUM SULFATE 1GM 100 ML IV ONE (02:00)
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
[2018-12-30] MEDS ORDERED: IOHEXOL 300 MG/ML 100ML VIAL. ONE (05:06)
[2018-12-30] MEDS: POTASSIUM CHLORIDE 10MEQ 100 ML IV SCH ×2 (10:45→15:39)
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
[2018-12-30] MEDS ORDERED: cloNIDine HCL 0.1 MG TABLET PO PRN (12:30)
[2018-12-30] MEDS ORDERED: ONDANSETRON PF 4 MG/2 ML VIAL. IV PRN (12:30)
[2018-12-30] MEDS: THIAMINE IM 200 MG/2 ML VIAL. IM SCH (14:18)
[2018-12-30] MEDS: PANTOPRAZOLE 40 MG TABLET.DR. PO SCH (14:18)
[2018-12-30] MEDS: FOLIC ACID 1 MG TABLET. PO SCH (14:18)
[2018-12-30] MEDS: MULTIVITAMIN with MINERAL TABLET. PO SCH (14:18)
[2018-12-30] MEDS: ASCORBIC ACID 500 MG TABLET PO SCH (14:18)
[2018-12-30] MEDS: traMADol 50 MG TABLET PO PRN (14:18)
[2018-12-30] MEDS: FLUoxetine HCL 10 MG CAPSULE PO SCH (14:19)
[2018-12-30] MEDS: LORazepam 1 MG TABLET PO PRN ×2 (14:19→18:27)
[2018-12-30 15:01] VITALS: BP 104/67
[2018-12-30 18:07] LABS: BASO % 2 % (0-3); EOS % 4 % (0-3); HEMATOCRIT 33.5 % (36.0-47.0); HEMOGLOBIN 11.6 g/dL (12.0-15.5); LYMPH # 0.7 x10^3/uL (1.0-4.8); LYMPH % 55 % (24-48); MEAN CORPUSCULAR HEMOGLOBIN 38 pg (25-35); MEAN CORPUSCULAR HGB CONC 35 g/dL (31-37); MEAN CORPUSCULAR VOLUME 110 fL (79-100); MONO # 0.2 x10^3/uL (0.0-1.1); MONO % 16 % (0-9); NEUT # 0.3 x10^3uL (1.8-7.7); NEUT % 24 % (31-73); PLATELET COUNT 103 x10^3/uL (140-400); RED BLOOD COUNT 3.03 x10^6/uL (3.50-5.40); RED CELL DISTRIBUTION WIDTH 13.3 % (11.5-14.5)
[2018-12-30 18:42] LABS: CALCIUM 8.7 mg/dL (8.5-10.1); GFR 58.5; POTASSIUM 4.1 mmol/L (3.5-5.1)
[2018-12-30 18:43] LABS: WHITE BLOOD COUNT 1.2 x10^3/uL (4.0-11.0)
[2018-12-30 18:47] VITALS: BP 113/78
[2018-12-30] MEDS: HALOPERIDOL LACTATE 5 MG/ML VIAL. IVP PRN (20:05)
[2018-12-30] MEDS: LOPERAMIDE 2 MG CAPSULE PO PRN (22:49)
[2018-12-31 07:00] VITALS: BP 114/81
[2018-12-31] MEDS: ASCORBIC ACID 500 MG TABLET PO SCH (09:19)
[2018-12-31] MEDS: PANTOPRAZOLE 40 MG TABLET.DR. PO SCH (09:20)
[2018-12-31] MEDS: MULTIVITAMIN with MINERAL TABLET. PO SCH (09:20)
[2018-12-31] MEDS: FOLIC ACID 1 MG TABLET. PO SCH (09:20)
[2018-12-31] MEDS: THIAMINE IM 200 MG/2 ML VIAL. IM SCH (09:20)
[2018-12-31] MEDS: FLUoxetine HCL 10 MG CAPSULE PO SCH (09:20)
[2018-12-31 11:00] VITALS: BP 111/83
[2018-12-31] MEDS: LORazepam 1 MG TABLET PO PRN ×3 (11:43→22:39)
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
[2018-12-31 12:29] VITALS: BP 111/83
[2018-12-31] MEDS ORDERED: LORazepam 1 MG TABLET PO PRN (12:30)
[2018-12-31] MEDS: LOPERAMIDE 2 MG CAPSULE PO PRN (13:56)
[2018-12-31 15:00] VITALS: BP 134/91
[2018-12-31] MEDS: ALPRAZolam 0.5 MG TABLET PO PRN ×2 (15:55→18:35)
[2018-12-31] MEDS: traMADol 50 MG TABLET PO PRN (16:27)
[2018-12-31 19:11] VITALS: BP 130/92
[2018-12-31] MEDS: HALOPERIDOL LACTATE 5 MG/ML VIAL. IVP PRN (19:26)
--- NOTE | 2018-12-31 19:47 | NUR ---
Attempted to administer IVP Haldol as patient is extremely anxious- unable to at this time d/t no IV access.
[2018-12-31] MEDS ORDERED: NICOTINE 14MG PATCH. TD PRN (21:00)
[2018-12-31] MEDS: ZOLPIDEM 5 MG TABLET. PO PRN ×2 (21:31→22:38)
[2018-12-31 23:59] VITALS: BP 134/91
[2019-01-01 03:59] VITALS: BP 132/86
[2019-01-01 06:27] VITALS: BP 123/86
[2019-01-01] MEDS: THIAMINE IM 200 MG/2 ML VIAL. IM SCH (09:00)
[2019-01-01 09:27] LABS: BASO % 2 % (0-3); EOS % 4 % (0-3); HEMATOCRIT 32.1 % (36.0-47.0); LYMPH # 0.6 x10^3/uL (1.0-4.8); LYMPH % 53 % (24-48); MEAN CORPUSCULAR HEMOGLOBIN 38 pg (25-35); MEAN CORPUSCULAR HGB CONC 34 g/dL (31-37); MEAN CORPUSCULAR VOLUME 110 fL (79-100); MONO # 0.2 x10^3/uL (0.0-1.1); MONO % 15 % (0-9); NEUT # 0.3 x10^3uL (1.8-7.7); NEUT % 26 % (31-73); PLATELET COUNT 90 x10^3/uL (140-400); RED BLOOD COUNT 2.91 x10^6/uL (3.50-5.40); RED CELL DISTRIBUTION WIDTH 13.2 % (11.5-14.5)
[2019-01-01] MEDS: LORazepam 1 MG TABLET PO PRN ×5 (09:29→21:17)
[2019-01-01] MEDS: MULTIVITAMIN with MINERAL TABLET. PO SCH (09:30)
[2019-01-01] MEDS: ASCORBIC ACID 500 MG TABLET PO SCH (09:30)
[2019-01-01] MEDS: FOLIC ACID 1 MG TABLET. PO SCH (09:30)
[2019-01-01] MEDS: PANTOPRAZOLE 40 MG TABLET.DR. PO SCH (09:30)
[2019-01-01] MEDS: traMADol 50 MG TABLET PO PRN ×2 (09:31→20:08)
[2019-01-01] MEDS: FLUoxetine HCL 10 MG CAPSULE PO SCH (09:36)
[2019-01-01 09:43] LABS: WHITE BLOOD COUNT 1.1 x10^3/uL (4.0-11.0)
--- NOTE | 2019-01-01 09:46 | NUR ---
Received call from Charline in lab. Critical lab WBC 1.1 Dr Loya on unit and notified.
[2019-01-01 11:00] VITALS: BP 118/81
[2019-01-01] MEDS: ALPRAZolam 0.5 MG TABLET PO PRN (14:00)
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
[2019-01-01] MEDS ORDERED: ZOLP5TAB PO (14:28)
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
[2019-01-01 14:57] VITALS: BP 136/93
--- NOTE | 2019-01-01 18:33 | NUR ---
Pt cleared medically for admission to [facility]. Pt is being evaluated for transfer to [facility] this evening. I gave contact information to admitting and the medical housekeeper will contact Dr Loya for details and we will receive a call back with transport time. There is a bed available. Radha with PAT Team also notified.
[2019-01-01 19:00] VITALS: BP 135/85
--- NOTE | 2019-01-01 20:30 | NUR ---
Per day shift RN, patient was to be transferred to [facility] this evening. I called there and left a message for someone to call with information. Spoke with Eliza in admitting. She stated that the doctors have not spoken yet and she will give Dr. Loya's cell phone number to the oncoming doctor in the the a.m.
--- NOTE | 2019-01-01 20:35 | NUR ---
Patient removed nurse monitoring and refused for me to re-apply. Awaiting transportation to [facility]
[2019-01-01] MEDS: ZOLPIDEM 5 MG TABLET. PO PRN (21:17)
[2019-01-01] MEDS: LOPERAMIDE 2 MG CAPSULE PO PRN (21:17)
[2019-01-02 03:10] VITALS: BP 139/106
[2019-01-02] MEDS: LORazepam 1 MG TABLET PO PRN ×2 (04:29→09:32)
[2019-01-02 07:00] VITALS: BP 124/93
--- NOTE | 2019-01-02 08:30 | NUR ---
Spoke with David from PAT team, pt has court scheduled this morning at 10am and needs to be present for it. Verified via progress notes that pt is medically stable for discharge. Dr. Loya called the unit, and stated that he spoke with the doctor at [facility] and she has been accepted and has a bed available. This Rn notified David of this, he then stated that a [facility] will be picking the patient up for court, then transporting to [facility]. Rob, from [facility], called to verify transport had been set up and needed a phone number for report. This RN explained that after court, she will be securely transported by the [facility] to the hospital. Awaiting a phone call from the [facility] to give report.
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
[2019-01-02] MEDS: ASCORBIC ACID 500 MG TABLET PO SCH (09:06)
[2019-01-02] MEDS: FOLIC ACID 1 MG TABLET. PO SCH (09:06)
[2019-01-02] MEDS: PANTOPRAZOLE 40 MG TABLET.DR. PO SCH (09:06)
[2019-01-02] MEDS: FLUoxetine HCL 10 MG CAPSULE PO SCH (09:06)
[2019-01-02] MEDS: MULTIVITAMIN with MINERAL TABLET. PO SCH (09:06)
[2019-01-02] MEDS: traMADol 50 MG TABLET PO PRN (09:06)
--- NOTE | 2019-01-02 09:30 | NUR ---
Discharge Note: MOY OMALLEY [address] [place] [address] Discharge instructions and discharge home medications reviewed with Patient and a copy given. All questions have been answered and understanding verbalized. Discontinued lines and drains: Peripheral IV and heart monitor removed yesterday, 01/01, patient refused to place another one. Patient discharged to [facility] with [facility] via Wheelchair.
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
--- NOTE | 2019-01-02 11:00 | NUR ---
Nurse to Nurse report called to Danielle at [facility]. All questions answered and verbalized understanding.
[2019-01-06] MEDS ORDERED: THIAMINE 100 MG TABLET. PO SCH (09:00)
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
== END 2019-01-02 09:30 | DRG 641 ==
LOC: ER 22:10 → 6 SOUTH 12-30 10:31
PROVIDERS: ADMIT Internal Medicine; ATTEND Internal Medicine
DX: E87.6 Hypokalemia (principal); E44.0 Moderate protein-calorie malnutrition; R45.851 Suicidal ideations; Z68.1 Body mass index [BMI] 19.9 or less, adult; D53.9 Nutritional anemia, unspecified; D63.8 Anemia in other chronic diseases classified elsewhere; D69.59 Other secondary thrombocytopenia; D70.9 Neutropenia, unspecified; E83.42 Hypomagnesemia; F32.9 Major depressive disorder, single episode, unspecified; I10 Essential (primary) hypertension; K74.60 Unspecified cirrhosis of liver; K76.0 Fatty (change of) liver, not elsewhere classified; M46.90 Unspecified inflammatory spondylopathy, site unspecified; R13.10 Dysphagia, unspecified; Z87.891 Personal history of nicotine dependence; Z90.49 Acquired absence of other specified parts of digestive tract; Z91.5 Personal history of self-harm; Z88.2 Allergy status to sulfonamides; V20.5XXA Motorcycle passenger injured in collision with pedestrian or animal in traffic accident, initial encounter; F10.129 Alcohol abuse with intoxication, unspecified; Y90.8 Blood alcohol level of 240 mg/100 ml or more
CPT/HCPCS: 36415; 70450; 71045; 71260; 72125; 73060; 73070; 73552; 74177; 80048; 80053; 80307; 81001; 81025; 83735; 85007; 85025; 85610; 85730; 86850; 86900; 86901; 96374; G0480; J1630; J2060; J2405; J3475; J3480; Q9967; 99285-25

== ENCOUNTER 2019-06-11 11:13 | Emergency (ER) | payer MEDICAID ==
[~2019-06-11] VITALS: Ht 157.5 cm; Wt 56.7 kg
[~2019-06-11 11:13] MED LIST changes: +ASCO-219 PO; -ASCO500T PO; +CLON-77 PO; -CLON0.5T11 PO; -CLON1TAB11 PO; +CLONAZEPAM1 MG PO; +TRAZ-118 PO; +ZOLP5TAB PO
[2019-06-11 11:21] VITALS: BP 146/100
--- NOTE | 2019-06-11 11:30 | PHYS DOC ---
Past Medical History Past Medical History: Anxiety, Depression, Hypertension, Other Additional Past Medical Histor: etoh, chronic pain Past Surgical History: Appendectomy, Other Additional Past Surgical Histo: D&C, , R arm surgery Alcohol Use: Heavy Drug Use: Benzodiazepine Adult General Chief Complaint Chief Complaint: ALCOHOL INTOXICATION HPI HPI 53-year-old female presents to the emergency department with complaints of alcohol intoxication, suicidal ideation. States she drinks daily he is a couple shots as well as a 12 pack of beer sometimes more. She is concerned that she is going through withdrawals however has not stopped drinking and does not appear to be in acute withdrawal at this time. She does have underlying anxiety. She has a history of suicidal ideation the past, states she's been inpatient psych, last admission was in October. She denies any auditory or visual hallucinations, denies any homicidal ideation. She does not have a plan just thoughts. Review of Systems Review of Systems Constitutional: Denies fever or chills [] Respiratory: Denies cough or shortness of breath [] Cardiovascular: No additional information not addressed in HPI [] GI: + nausea, + vomiting, no bloody stools or diarrhea [] Musculoskeletal: Denies back pain or joint pain [] Neurologic: Denies headache, focal weakness or sensory changes [] Psych: SI All other systems were reviewed and found to be within normal limits, except as documented in this note. Allergies Allergies Allergies Coded Allergies Type Severity Reaction Last Updated Verified Sulfa (Sulfonamide Antibiotics) Allergy Intermediate rash 09/29/18 Yes Physical Exam Physical Exam Constitutional: Well developed, well nourished, no acute distress, non-toxic appearance. [] HENT: Normocephalic, atraumatic, bilateral external ears normal, oropharynx moist, no oral exudates, nose normal. [] Eyes: PERRLA, EOMI, conjunctiva normal, no discharge. [] Cardiovascular: tachycardia Lungs & Thorax: Bilateral breath sounds clear to auscultation [] Abdomen: Bowel sounds normal, soft, no tenderness, no masses, no pulsatile masses. [] Skin: Warm, dry, no erythema, no rash. [] Extremities: No tenderness, no cyanosis, no clubbing, ROM intact, no edema. [] Neurologic: Alert and oriented X 3, no focal deficits noted. [] Psychologic: Tearful, depressed, SI[] Current Patient Data Vital Signs Vital Signs Date Time Temp Pulse Resp B/P (MAP) Pulse Ox O2 Delivery O2 Flow Rate FiO2 06/11/19 11:21 98.7 94 20 146/100 (115) 99 Room Air 98.7 Lab Values Laboratory Tests Test 06/11/19 11:29 White Blood Count 2.8 x10^3/uL (4.0-11.0) L Red Blood Count 3.65 x10^6/uL (3.50-5.40) Hemoglobin 13.3 g/dL (12.0-15.5) Hematocrit 38.2 % (36.0-47.0) Mean Corpuscular Volume 105 fL (79-100) H Mean Corpuscular Hemoglobin 37 pg (25-35) H Mean Corpuscular Hemoglobin Concent 35 g/dL (31-37) Red Cell Distribution Width 13.1 % (11.5-14.5) Platelet Count 175 x10^3/uL (140-400) Neutrophils (%) (Auto) 46 % (31-73) Lymphocytes (%) (Auto) 41 % (24-48) Monocytes (%) (Auto) 10 % (0-9) H Eosinophils (%) (Auto) 2 % (0-3) Basophils (%) (Auto) 1 % (0-3) Neutrophils # (Auto) 1.3 x10^3/uL (1.8-7.7) L Lymphocytes # (Auto) 1.1 x10^3/uL (1.0-4.8) Monocytes # (Auto) 0.3 x10^3/uL (0.0-1.1) Eosinophils # (Auto) 0.0 x10^3/uL (0.0-0.7) Basophils # (Auto) 0.0 x10^3/uL (0.0-0.2) Sodium Level 139 mmol/L (136-145) Potassium Level 4.6 mmol/L (3.5-5.1) Chloride Level 104 mmol/L (98-107) Carbon Dioxide Level 25 mmol/L (21-32) Anion Gap 10 (6-14) Blood Urea Nitrogen 10 mg/dL (7-20) Creatinine 0.9 mg/dL (0.6-1.0) Estimated GFR (Cockcroft-Gault) 66.0 BUN/Creatinine Ratio 11 (6-20) Glucose Level 107 mg/dL (70-99) H Calcium Level 9.5 mg/dL (8.5-10.1) Total Bilirubin 0.4 mg/dL (0.2-1.0) Aspartate Amino Transferase (AST) 100 U/L (15-37) H Alanine Aminotransferase (ALT) 68 U/L (14-59) H Alkaline Phosphatase 86 U/L (46-116) Total Protein 8.0 g/dL (6.4-8.2) Albumin 4.0 g/dL (3.4-5.0) Albumin/Globulin Ratio 1.0 (1.0-1.7) Salicylates Level 6.1 mg/dL (2.8-20.0) Salicylate Last Dose Date Unknown Salicylate Last Dose Time Unknown Acetaminophen Level < 2 mcg/ml (10-30) L Acetaminophen Last Dose Date Unknown Acetaminophen Last Dose Time Unknown Ethyl Alcohol Level 104 mg/dL (0-10) H Laboratory Tests 06/11/19 11:29 Laboratory Tests 06/11/19 11:29 EKG EKG [] Radiology/Procedures Radiology/Procedures [] Course & Med Decision Making Course & Med Decision Making Pertinent Labs and Imaging studies reviewed. (See chart for details) []53-year-old female presents to the emergency department with complaints of alcohol intoxication, suicidal ideation. States she drinks daily he is a couple shots as well as a 12 pack of beer sometimes more. She is concerned that she is going through withdrawals however has not stopped drinking and does not appear to be in acute withdrawal at this time. She does have underlying anxiety. She has a history of suicidal ideation the past, states she's been inpatient psych, last admission was in October. She denies any auditory or visual hallucinations, denies any homicidal ideation. She does not have a plan just thoughts. labs reviewed, ETOH < 150 PAT paged and here to assess at 1300 Patient accepted for inpatient withdrawal treatment will discharge to facility No evidence of withdrawal at this time Dragon Disclaimer Dragon Disclaimer This electronic medical record was generated, in whole or in part, using a voice recognition dictation system. Departure Departure Impression: Primary Impression: Alcohol intoxication Additional Impression: Suicidal ideation Disposition: 05 TRANSFER OTHER Referrals: UNKNOWN PCP NAME (PCP) Patient Instructions: Alcohol Intoxication, [id number], Alcohol Withdrawal, Suicidal Feelings, How to Help Yourself Additional Instructions: Recommend follow up with PCP 3 - 5 days Return to the ER with worsening symptoms, intractable pain, fever, altered mental status Take medications (librium) per staff at inpatient facility Problem Qualifiers Primary Impression: Alcohol intoxication Complication of substance-induced condition: uncomplicated Qualified Codes: F10.920 - Alcohol use, unspecified with intoxication, uncomplicated TENISHA RANKIN MD Jun 11, 2019 11:30
[2019-06-11 11:41] LABS: BASO % 1 % (0-3); EOS % 2 % (0-3); HEMATOCRIT 38.2 % (36.0-47.0); HEMOGLOBIN 13.3 g/dL (12.0-15.5); LYMPH # 1.1 x10^3/uL (1.0-4.8); LYMPH % 41 % (24-48); MEAN CORPUSCULAR HEMOGLOBIN 37 pg (25-35); MEAN CORPUSCULAR HGB CONC 35 g/dL (31-37); MEAN CORPUSCULAR VOLUME 105 fL (79-100); MONO # 0.3 x10^3/uL (0.0-1.1); MONO % 10 % (0-9); NEUT # 1.3 x10^3/uL (1.8-7.7); NEUT % 46 % (31-73); PLATELET COUNT 175 x10^3/uL (140-400); RED BLOOD COUNT 3.65 x10^6/uL (3.50-5.40); RED CELL DISTRIBUTION WIDTH 13.1 % (11.5-14.5); WHITE BLOOD COUNT 2.8 x10^3/uL (4.0-11.0)
[2019-06-11 11:50] LABS: CALCIUM 9.5 mg/dL (8.5-10.1); CREATININE 0.9 mg/dL (0.6-1.0); POTASSIUM 4.6 mmol/L (3.5-5.1)
[2019-06-11 11:55] LABS: TOTAL BILIRUBIN 0.4 mg/dL (0.2-1.0)
[2019-06-11 12:02] LABS: ACETAMIN < 2 mcg/ml (10-30); SALIC 6.1 mg/dL (2.8-20.0)
== END 2019-06-11 14:44 | disposition home or self-care (01) ==
LOC: ER 11:13
DX: F10.229 Alcohol dependence with intoxication, unspecified (principal); R45.851 Suicidal ideations; R11.2 Nausea with vomiting, unspecified; F41.9 Anxiety disorder, unspecified; F32.9 Major depressive disorder, single episode, unspecified; I10 Essential (primary) hypertension; G89.29 Other chronic pain; Z90.89 Acquired absence of other organs; Z98.890 Other specified postprocedural states; Z68.22 Body mass index [BMI] 22.0-22.9, adult; Z88.2 Allergy status to sulfonamides
CPT/HCPCS: 36415; 80053; 80329; 85025; 99284; G0480